=== PATIENT | female | born 1955 | race Caucasian/White ===

== ENCOUNTER 2017-03-27 11:25 | Emergency (ER) | payer OTHER, MEDICAID ==
[~2017-03-27] VITALS: Ht 152.4 cm; Wt 50.0 kg
--- NOTE | 2017-03-27 11:52 | PD ---
HPI Chief Complaint: sob Time Seen by Provider: 11:42 Travel History International Travel<30 days: No Contact w/Intl Traveler<30days: No History of Present Illness HPI 57yo F with PMH of COPD presents to the ED with c/o sob for a few weeks and worse today. States she has been using her pumps at home but not helping. + Cough. Denies any fever, chest pain, n/v, abdominal pain, focal weakness or numbness. PFSH Social History Tobacco Use: No Allergies-Medications (Allergen,Severity, Reaction): Coded Allergies: Codeine (Verified Allergy, Unknown, 03/27/17) Reported Meds & Prescriptions Reported Meds & Active Scripts Active Ventolin Hfa 18 GM Inh (Albuterol Sulfate) 90 Mcg/Act Aer 2 Puff INH Q4H PRN Deltasone (Prednisone) 20 Mg Tab 20 Mg PO BID 5 Days Reported Incruse Ellipta Inh (Umeclidinium [place] Inh) 0.0625 Mg/Act Inh 1-2 Puff INH Q4 -6H PRN Duoneb (Ipratropium-Albuterol Neb) 0.5-2.5 Mg/3 Ml Neb 3 Ml NEB Q4-6H Amlodipine (Amlodipine Besylate) 5 Mg Tab 5 Mg PO DAILY Advair Diskus Inh (Fluticasone-Salmeterol Inh) 250-50 Mcg/Blist Aer 1 Puff INH BID Rinse mouth after use. Ventolin Hfa 18 GM Inh (Albuterol Sulfate) 90 Mcg/Act Aer 2 Puff INH Q4H PRN Albuterol Neb (Albuterol Sulfate) 1.25 Mg/3 Ml Neb 1.25 Mg NEB TID NEB Protonix (Pantoprazole Sodium) 40 Mg Tab 40 Mg PO DAILY Fluoxetine (Fluoxetine HCl) 20 Mg Capsule 20 Mg PO DAILY Buspirone (Buspirone HCl) 15 Mg Tab 15 Mg PO BID Vitamin D3 (Cholecalciferol) 5,000 Unit Cap 5,000 Units PO DAILY Ergocalciferol 50,000 Unit Cap 50,000 Units PO WEEKLY Diprolene AF Topical (Betamethasone Dipropionate Aug Topical) 0.05% Cream 1 Applic TOPICAL 3-4 TIMES DAILY Review of Systems Except as stated in HPI: all other systems reviewed are Neg Physical Exam Narrative GENERAL: 57yo F in mild distress. SKIN: Focused skin assessment warm/dry. HEAD: Atraumatic. Normocephalic. EYES: Pupils equal and round. No scleral icterus. No injection or drainage. ENT: No nasal bleeding or discharge. Mucous membranes pink and moist. NECK: Trachea midline. No JVD. CARDIOVASCULAR: Regular rate and rhythm. No murmur appreciated. RESPIRATORY: + accessory muscle use. Coarse breath sounds bilaterally, right > left. GASTROINTESTINAL: Abdomen soft, non-tender, nondistended. MUSCULOSKELETAL: No obvious deformities. No clubbing. No cyanosis. No edema. No calf tenderness. NEUROLOGICAL: Awake and alert. No obvious cranial nerve deficits. Motor grossly within normal limits. Normal speech. PSYCHIATRIC: Appropriate mood and affect; insight and judgment normal. Data Data Last Documented VS Vital Signs Date Time Temp Pulse Resp B/P Pulse Ox O2 Delivery O2 Flow Rate FiO2 03/27/17 15:00 94 20 137/69 92 3 03/27/17 12:23 98.8 Nasal Cannula Orders Complete Blood Count With Diff (03/27/17 11:48) Basic Metabolic Panel (Bmp) (03/27/17 11:48) B-Type Natriuretic Peptide (03/27/17 11:48) Act Partial Throm Time (Ptt) (03/27/17 11:48) Prothrombin Time / Inr (Pt) (03/27/17 11:48) Troponin I (03/27/17 11:48) Arterial Blood Gas (Abg) (03/27/17 11:48) Iv Access Insert/Monitor (03/27/17 11:48) Electrocardiogram (03/27/17 11:48) Ecg Monitoring (03/27/17 11:48) Oximetry (03/27/17 11:48) Oxygen Administration (03/27/17 11:48) Chest, Single Ap (03/27/17 11:48) Albuterol-Ipratropium Neb (Duoneb Neb) (03/27/17 12:30) Labs Laboratory Tests Test 03/27/17 03/27/17 12:00 12:07 Blood Gas Puncture Site RT RADIAL Blood Gas Patient Temperature 98.6 Blood Gas HCO3 29 mmol/L Blood Gas Base Excess 4.3 mmol/L Blood Gas Oxygen Saturation 93 % Arterial Blood pH 7.38 Arterial Blood Partial 50 mmHg Pressure CO2 Arterial Blood Partial 71 mmHG Pressure O2 Arterial Blood Oxygen Content 20.4 Vol % Arterial Blood 1.3 % Carboxyhemoglobin Arterial Blood Methemoglobin 0.7 % Blood Gas Hemoglobin 15.7 G/DL Oxygen Delivery Device NASAL CANNULA Blood Gas Liter Flow 2 L/M White Blood Count 9.6 TH/MM3 Red Blood Count 5.02 MIL/MM3 Hemoglobin 15.5 GM/DL Hematocrit 45.6 % Mean Corpuscular Volume 90.8 FL Mean Corpuscular Hemoglobin 31.0 PG Mean Corpuscular Hemoglobin 34.1 % Concent Red Cell Distribution Width 12.9 % Platelet Count 182 TH/MM3 Mean Platelet Volume 9.6 FL Neutrophils (%) (Auto) 73.1 % Lymphocytes (%) (Auto) 16.8 % Monocytes (%) (Auto) 7.5 % Eosinophils (%) (Auto) 1.9 % Basophils (%) (Auto) 0.7 % Neutrophils # (Auto) 7.0 TH/MM3 Lymphocytes # (Auto) 1.6 TH/MM3 Monocytes # (Auto) 0.7 TH/MM3 Eosinophils # (Auto) 0.2 TH/MM3 Basophils # (Auto) 0.1 TH/MM3 CBC Comment DIFF FINAL Differential Comment Prothrombin Time 10.7 SEC Prothromb Time International 1.0 RATIO Ratio Activated Partial 31.5 SEC Thromboplast Time Sodium Level 133 MEQ/L Potassium Level 4.0 MEQ/L Chloride Level 99 MEQ/L Carbon Dioxide Level 29.1 MEQ/L Anion Gap 5 MEQ/L Blood Urea Nitrogen 12 MG/DL Creatinine 0.52 MG/DL Estimat Glomerular Filtration 120 ML/MIN Rate Random Glucose 107 MG/DL Calcium Level 9.3 MG/DL Troponin I LESS THAN 0.02 NG/ML B-Type Natriuretic Peptide 20 PG/ML [facility] Medical Decision Making Medical Screen Exam Complete: Yes Emergency Medical Condition: Yes Interpretation(s) EKG: NSR 90bpm. No ST segment elevation or depression. Differential Diagnosis COPD exacerbation vs. ACS Narrative Course 61yo F with sob and wheezing. Labs reviewed, no leukocytosis. Troponin negative. BNP 20. ABG showed chronic CO2 retention at 50. pH is 7.38. O2 sat 93%. Pt uses 2 L NC oxygen at home. Was given methylprednisolone 125mg IV by [facility] and duonebs x3 here. Pt reevaluated at bedside and feels much better. Still wheezing on exam but saturating at 93% on 2L NC. CXR negative. Pt feels well and wants to go home. Return precautions given. Diagnosis Primary Impression: COPD exacerbation Patient Instructions: General Instructions Departure Forms: Tests/Procedures Additional Instructions: Please follow up with your PMD in 1-2 days. Return to the ED if symptoms worsen. Med/Other Pt SpecificInfo: Prescription(s) given Scripts Albuterol 18 GM Inh (Ventolin Hfa 18 GM Inh)90 Mcg/Act Aer2 Puff INH Q4H PRN ( SHORTNESS OF BREATH) #1 INHALER Ref 0 Prov:Enid Gabriel DO 03/27/17 Prednisone (Deltasone)20 Mg Tab20 Mg PO BID 5 Days Ref 0 Prov:Enid Gabriel DO 03/27/17 Disposition: 01 DISCHARGE HOME Condition: Stable Enid Gabriel DO Mar 27, 2017 11:52
[2017-03-27 12:09] LABS: BLOOD GAS BASE EXCESS 4.3 mmol/L (-2-2); BLOOD GAS CARBOXYHEMOGLOBIN 1.3 % (0-4); BLOOD GAS HCO3 29 mmol/L (22-26); BLOOD GAS METHEMOGLOBIN 0.7 % (0-2); BLOOD GAS O2 HGB SATURATION 93 % (90-100); BLOOD GAS OXYGEN CONTENT 20.4 Vol % (12.0-20.0); BLOOD GAS PCO2 50 mmHg (38-42); BLOOD GAS PO2 71 mmHG (61-120); BLOOD GAS TOTAL HGB 15.7 G/DL (12.0-16.0); CRITICAL VALUE NO; OXYGEN DEVICE NASAL CANNULA; TEMP CORR TO 98.6
[2017-03-27 12:10] LABS: DRAW SITE RT RADIAL; LITER FLOW 2 L/M; NUMBER OF ARTERIAL PUNCTURES 1; ULNAR PULSE PRESENT
[2017-03-27 12:11] LABS: STAT YES
[2017-03-27 12:13] VITALS: RESP 26; O2SAT 94
[2017-03-27 12:23] VITALS: BP 163/68; PULSE 91; RESP 18; TEMP 98.8; O2SAT 94
[2017-03-27] MEDS: RESP: ALBUTEROL 2.5 MG/IPRATROPIUM 0.5 MG NEB (SCH) INH ×2 (12:35→12:36)
[2017-03-27 12:39] LABS: BASOPHIL # 0.1 TH/MM3 (0-0.2); BASOPHIL % 0.7 % (0.0-2.0); EOSINOPHIL # 0.2 TH/MM3 (0-0.4); EOSINOPHIL % 1.9 % (0.0-4.0); HEMATOCRIT 45.6 % (35.0-46.0); HEMO FLAGS DIFF FINAL; LYMPH % 16.8 % (9.0-44.0); LYMPHOCYTE # 1.6 TH/MM3 (1.0-4.8); MEAN CELL VOLUME 90.8 FL (80.0-100.0); MEAN CORPUSCULAR HGB CONC 34.1 % (32.0-36.0); MONO % 7.5 % (0.0-8.0); NEUT % 73.1 % (16.0-70.0); PLATELET COUNT 182 TH/MM3 (150-450); RED BLOOD COUNT 5.02 MIL/MM3 (4.00-5.30); RED CELL DISTRIBUTION WIDTH 12.9 % (11.6-17.2); WHITE BLOOD COUNT 9.6 TH/MM3 (4.0-11.0)
[2017-03-27 12:49] LABS: APTT (PATIENT) 31.5 SEC (24.3-30.1); PROTHROMBIN TIME - PATIENT 10.7 SEC (9.8-11.6)
[2017-03-27 12:54] LABS: ANION GAP 5 MEQ/L (5-15); BICARBONATE 29.1 MEQ/L (21.0-32.0); BLOOD UREA NITROGEN 12 MG/DL (7-18); CHLORIDE 99 MEQ/L (98-107); GLOMERULAR FILTRATION RATE 120 ML/MIN (>89); SODIUM (NA) 133 MEQ/L (136-145)
[2017-03-27] MEDS ORDERED: AMLO5TAB2 PO (13:01)
[2017-03-27] MEDS ORDERED: BUSP15TA PO (13:01)
[2017-03-27] MEDS ORDERED: FLUO20CA12 PO (13:01)
[2017-03-27] MEDS ORDERED: IPRASOL NEB (13:01)
[2017-03-27] MEDS ORDERED: UMEC1INH INH (13:01)
[2017-03-27] MEDS ORDERED: ADVA250A INH (13:01)
[2017-03-27] MEDS ORDERED: DIPR0.05 TOPICAL (13:01)
[2017-03-27] MEDS ORDERED: ERGO1CAP30 PO (13:01)
[2017-03-27] MEDS ORDERED: VENTAER INH ×2 (13:01→14:50)
[2017-03-27] MEDS ORDERED: PROT40TA PO (13:01)
[2017-03-27] MEDS ORDERED: ALBU1.25 NEB (13:01)
[2017-03-27] MEDS ORDERED: CHOL5000 PO (13:01)
--- NOTE | 2017-03-27 13:10 | RADRPT ---
EXAM DATE/TIME: 03/27/2017 12:12 [place] COMPARISON: No previous studies available for comparison. INDICATIONS : Short of breath, weakness for 5 days, smoker, no chest surgery MEDICAL HISTORY : Chronic obstructive pulmonary disease. Hypertension SURGICAL HISTORY : None. ENCOUNTER: Initial ACUITY: 4 - 6 days PAIN SCORE: 0/10 LOCATION: Bilateral chest FINDINGS: A single view of the chest demonstrates the lungs to be symmetrically aerated without evidence of mas s, infiltrate or effusion. The cardiomediastinal contours are unremarkable. Osseous structures are intact. CONCLUSION: No acute disease. Madi Ruffin MD on March 27, 2017 at 13:08 Board Certified Radiologist. This report was verified electronically.
--- NOTE | 2017-03-27 14:03 | EKG ---
Date Performed: 03/27/2017 Time Performed: 12:14:14 PTAGE: 61 years EKG: Sinus rhythm POSSIBLE RIGHT ATRIAL ENLARGEMENT INDETERMINATE AXIS BORDERLINE ECG INTERPRETATION BASED ON A DEFAUL T AGE OF 40 YEARS NO PREVIOUS TRACING DOCTOR: Ric Rodas Interpretating Date/Time 03/27/2017 14:01:43
[2017-03-27] MEDS ORDERED: PRED-503 PO (14:50)
[2017-03-27 15:00] VITALS: BP 137/69
== END 2017-03-27 16:20 | disposition home or self-care (01) ==
LOC: NEPC 11:25 → EDBD 11:25 → NEPC 16:20
DX: J44.1 Chronic obstructive pulmonary disease with (acute) exacerbation (principal); Z79.899 Other long term (current) drug therapy; Z79.51 Long term (current) use of inhaled steroids; Z79.52 Long term (current) use of systemic steroids
CPT/HCPCS: 36600; 71010; 80048; 82805; 83880; 84484; 85025; 85610; 85730; 93005; 94640; 94664; 99285

== ENCOUNTER 2018-07-22 15:43 | Inpatient (IN) ==
[2018-07-22] MEDS ORDERED: MethylPREDNISolone Sod Succinate Inj 125 MG/2 ML Vial IV.PUSH ONE (15:51)
--- NOTE | 2018-07-22 16:12 | ED ---
HPI General Chief complaint: Shortness of Breath/Dyspnea Stated complaint: sob Time Seen by Provider: 07/22/18 15:51 Source: patient, family, EMS and RN notes reviewed Mode of arrival: EMS History of Present Illness HPI narrative: 63yF brought in by EMS for shortness of breath and hypoxia. The patient arrived with O2 sats of 80% and severely dyspneic, placed on bipap, unable to provide further details of HPI. As per her sister, the patient has had recent black mold exposure in her apartment and has been complaining of shortness of breath for the past week. Today, she had difficulty finishing sentences so her sister called EMS. The patient uses 2L O2 around the clock, nebs multiple times a day, is currently on a prednisone taper ("half a pill a day"), 4-5 previous ICU admissions but no intubations as per sister. Related Data Home Medications Medication Instructions Recorded Confirmed albuterol sulfate [Ventolin HFA] 2 puff INHALATION Q4HR PRN 07/22/18 07/22/18 amlodipine 5 mg PO DAILY 07/22/18 07/22/18 ammonium lactate 1 applic TOPICAL BID 07/22/18 07/22/18 buspirone 15 mg PO BID 07/22/18 07/22/18 cholecalciferol (vitamin D3) 1,000 unit PO DAILY 07/22/18 07/22/18 [Vitamin D3] fluoxetine 20 mg PO DAILY 07/22/18 07/22/18 fluticasone-salmeterol [Advair 1 inh INHALATION Q12H 07/22/18 07/22/18 Diskus] ipratropium-albuterol 3 ml INHALATION QID PRN 07/22/18 07/22/18 losartan 50 mg PO DAILY 07/22/18 07/22/18 omeprazole 20 mg PO DAILY 07/22/18 07/22/18 umeclidinium [Incruse Ellipta] 1 inh INHALATION DAILY 07/22/18 07/22/18 Allergies Allergy/AdvReac Type Severity Reaction Status Date / Time codeine Allergy Unknown Hives Verified 07/22/18 15:51 Review of Systems ROS Unobtainable ROS Unobtainable: other (unobtainable due to respiratory distress) [facility] Medical History Medical History Anxiety (Acute) COPD (chronic obstructive pulmonary disease) (Acute) Depression (Acute) GERD (gastroesophageal reflux disease) (Acute) HTN (hypertension) (Acute) Hepatitis B (Acute) Social History Social History Smoking Status: Current every day smoker Tobacco Type: Cigarettes How Often Do You Have a Drink Containing Alcohol: Never Recent Travel in [facility] within the Last 8 Weeks: No Recent Out of Country Travel within the Last 8 Weeks: No Immunization History Tetanus Immunization: Unsure Exam Const General: ill appearing [place] Head: normocephalic and atraumatic Eyes General: appearance normal, both eyes and all related structures Chest Chest: normal inspection of the chest Resp Other: Tachypneic to 30s, accessory muscle use, answers in 1-2 word phrases, visibly distress, O2 sats 79-80% on room air Very faint end-expiratory wheeze, decreased air entry, prolonged expiratory phase Cardio Rate: tachycardic Rhythm: regular rhythm GI Palpation: soft and nontender Skin General: no rashes or lesions noted Neuro General: alert and awake Extrem Other: No lower extremity edema Course Initial Documented Vital Signs Pulse Oximetry 96 07/22/18 15:50 Last Documented Vital Signs Temperature 98.3 F 07/22/18 15:58 Pulse Rate 103 H 07/22/18 17:12 Respiratory Rate 26 H 07/22/18 17:12 Blood Pressure 141/67 H 07/22/18 17:12 Pulse Oximetry 95 07/22/18 17:12 Critical Care Time Critical Care Time: Yes Total Critical Care Time: 31 Attestation: Counseling/ Coordination of Care: Total critical care time 31 minutes. This includes examining and stabilizing the patient, gathering a history from a source other than the patient (i.e., chart review), formulating a differential diagnosis, ordering and interpreting laboratory tests and EKG, ordering and interpreting radiology tests, discussing the patient's care with other providers (hospitalist), management of acute hypoxic respiratory failure with non-invasive ventilation, re-evaluation at frequent intervals, and documentation. Amount of time is separate from teaching, counseling the patient and/or family, and exclusive of procedures. Medical Decision Making MDM Narrative Medical decision making narrative: Assessment: 63yF presenting with respiratory distress and hypoxia Plan: EKG and monitor Bipap Nebs and steroids CXR Labs Addendum: Patient tolerated bipap well, weaned to 3L nasal cannula and maintaining O2 sats >92%. I spoke with Dr. Wagner of [facility], patient will likely need bipap overnight tonight. Patient and her sister informed of plan and agree. Medical Screen Exam Complete: Yes Emergency Medical Condition: Yes Differential Diagnosis Differential Diagnosis: Differential diagnosis includes, but is not limited to: COPD exacerbation, respiratory failure, pneumonia, pleural effusion Medical Records Medical records reviewed: Yes I reviewed the patient's medical records. Lab Data Lab results reviewed: Yes I reviewed the patient's lab results. Result diagrams: 07/22/18 16:07 07/22/18 16:07 Lab Results 07/22/18 07/22/18 07/22/18 Range/Units 16:07 16:07 16:07 WBC 8.1 (4.0-11.0) th/mm3 RBC 5.27 (4.00-5.30) mil/mm3 Hgb 17.2 H (11.6-15.3) gm/dL Hct 50.6 H (35.0-46.0) % MCV 96.1 (80.0-100.0) fL MCH 32.6 (27.0-34.0) pg MCHC 33.9 (32.0-36.0) % RDW 12.4 (11.6-17.2) % Plt Count 187 (150-450) th/mm3 MPV 9.7 (7.0-11.0) fL Neut % (Auto) 86.5 H (16.0-70.0) % Lymph % (Auto) 6.5 L (9.0-44.0) % [place] % (Auto) 5.7 (0.0-8.0) % Eos % (Auto) 0.2 (0.0-4.0) % Baso % (Auto) 1.1 (0.0-2.0) % Neut # (Auto) 7.0 (1.8-7.7) th/mm3 Lymph # (Auto) 0.5 L (1.0-4.8) th/mm3 [place] # (Auto) 0.5 (0.0-0.9) th/mm3 Eos # (Auto) 0.0 (0.0-0.4) th/mm3 Baso # (Auto) 0.1 (0.0-0.2) th/mm3 WBC Differential . Differential Comment Auto diff final PT 10.0 (9.8-11.6) sec INR 1.0 Ratio Puncture Site Patient Temperature O2 Saturation (90-100) % ABG pH (7.380-7.420) ABG pCO2 (38-42) mmHg ABG pO2 (61-120) mmHg ABG HCO3 (22-26) mmol/L ABG O2 Content (12.0-20.0) Vol % ABG Base Excess (-2-2) mmol/L ABG Methemoglobin (0-2) % [place] Test Hemoglobin (12.0-16.0) G/DL Carboxyhemoglobin (0-4) % O2 Delivery Device Vent Setting Inspired O2 % Critical Value Sodium 136 (136-145) meq/L Potassium 4.3 (3.5-5.1) meq/L Chloride 100 (98-107) meq/L Carbon Dioxide 31.6 (21.0-32.0) meq/L Anion Gap 4 L (5-15) meq/L BUN 16 (7-18) mg/dL Creatinine 0.64 (0.50-1.00) mg/dL Estimated GFR Greater than 89 (>89) mL/min Random Glucose 122 H (74-106) mg/dL Calcium 8.6 (8.5-10.1) mg/dL Magnesium 2.4 (1.5-2.5) mg/dL Total Bilirubin 0.2 (0.2-1.0) mg/dL AST 54 H (15-37) U/L ALT 72 H (10-53) U/L Alkaline Phosphatase 89 (45-117) U/L Troponin I Less than 0.02 L (0.02-0.05) ng/mL B-Natriuretic Peptide (0-100) pg/mL Total Protein 7.7 (6.4-8.2) g/dL Albumin 3.8 (3.4-5.0) g/dL 07/22/18 07/22/18 Range/Units 16:07 16:39 WBC (4.0-11.0) th/mm3 RBC (4.00-5.30) mil/mm3 Hgb (11.6-15.3) gm/dL Hct (35.0-46.0) % MCV (80.0-100.0) fL MCH (27.0-34.0) pg MCHC (32.0-36.0) % RDW (11.6-17.2) % Plt Count (150-450) th/mm3 MPV (7.0-11.0) fL Neut % (Auto) (16.0-70.0) % Lymph % (Auto) (9.0-44.0) % [place] % (Auto) (0.0-8.0) % Eos % (Auto) (0.0-4.0) % Baso % (Auto) (0.0-2.0) % Neut # (Auto) (1.8-7.7) th/mm3 Lymph # (Auto) (1.0-4.8) th/mm3 [place] # (Auto) (0.0-0.9) th/mm3 Eos # (Auto) (0.0-0.4) th/mm3 Baso # (Auto) (0.0-0.2) th/mm3 WBC Differential Differential Comment PT (9.8-11.6) sec INR Ratio Puncture Site Right radial Patient Temperature 98.6 O2 Saturation 93 (90-100) % ABG pH 7.38 (7.380-7.420) ABG pCO2 54 H* (38-42) mmHg ABG pO2 81 (61-120) mmHg ABG HCO3 32 H (22-26) mmol/L ABG O2 Content 21.6 H (12.0-20.0) Vol % ABG Base Excess 6.5 H (-2-2) mmol/L ABG Methemoglobin 0.6 (0-2) % [place] Test Present Hemoglobin 16.6 H (12.0-16.0) G/DL Carboxyhemoglobin 3.3 (0-4) % O2 Delivery Device Bipap Vent Setting Ipap 15/epap 5 Inspired O2 30 % Critical Value Yes Sodium (136-145) meq/L Potassium (3.5-5.1) meq/L Chloride (98-107) meq/L Carbon Dioxide (21.0-32.0) meq/L Anion Gap (5-15) meq/L BUN (7-18) mg/dL Creatinine (0.50-1.00) mg/dL Estimated GFR (>89) mL/min Random Glucose (74-106) mg/dL Calcium (8.5-10.1) mg/dL Magnesium (1.5-2.5) mg/dL Total Bilirubin (0.2-1.0) mg/dL AST (15-37) U/L ALT (10-53) U/L Alkaline Phosphatase (45-117) U/L Troponin I (0.02-0.05) ng/mL B-Natriuretic Peptide 9 (0-100) pg/mL Total Protein (6.4-8.2) g/dL Albumin (3.4-5.0) g/dL Imaging Data Radiologist's impression: Chest X-Ray 07/22/18 15:51 CONCLUSION: 1. Hyperinflation characteristic of COPD. 2. Minimal bibasilar densities likely atelectasis. 3. Sclerotic focus left humeral head likely bone island. ECG Data Attestation: I personally reviewed and interpreted this ECG as follows: Interpretation: Rate: 92 BPM Rhythm: Sinus [place]: Normal Intervals: Normal intervals, no blocks, QTc 385 ms Q waves: V2, V3 T waves: Upright, no inversions ST segments: Analysis limited due to motion artifact, no obvious elevations or depressions Impression: Non-specific EKG, analysis limited due to motion artifact, no changes as compared to EKG from 03/27/2017. Discharge Plan Discharge Disposition Patient Disposition: 30 Still Patient Discharge Condition Condition: Stable Discharge Details Diagnosis: COPD (chronic obstructive pulmonary disease), Acute respiratory failure with hypoxia Physicians Team ED Provider: Chanel Reina Primary Care Provider: Krystian Corado Attending Provider: Luciana Wagner Status ED Status: Admitted Patient
--- NOTE | 2018-07-22 16:19 | XR ---
EXAM DATE: 07/22/2018 3:51 PM EDT AGE/SEX: 63 years / Female INDICATIONS: Shortness of breath. CLINICAL DATA: This is the patient's initial encounter. Patient reports that signs and symptoms have been present for 1 week and indicates a pain score of 0/10. MEDICAL/SURGICAL HISTORY: Chronic obstructive pulmonary disease. Hypertension. None. COMPARISON: [facility], XR CHEST PA AND LAT, 04/14/2017. [facility], XR CHEST PA AND LAT, 10/10/2016. . FINDINGS: A single AP view of the chest demonstrates the lungs to be hyperinflated with minimal bibasilar atele ctasis. Heart normal in size. The cardiomediastinal contours are unremarkable. Osseous structures a re intact. Sclerotic focus left humeral head. CONCLUSION: 1. Hyperinflation characteristic of COPD. 2. Minimal bibasilar densities likely atelectasis. 3. Sclerotic focus left humeral head likely bone island. Electronically signed by: Albert Gibson MD 07/22/2018 4:18 PM EDT
[2018-07-22 16:47] LABS: Baso # (Auto) 0.1 th/mm3 (0.0-0.2); Baso % (Auto) 1.1 % (0.0-2.0); Eos % (Auto) 0.2 % (0.0-4.0); Hematocrit 50.6 % (35.0-46.0); Hemoglobin 17.2 gm/dL (11.6-15.3); Lymph # (Auto) 0.5 th/mm3 (1.0-4.8); Lymph % (Auto) 6.5 % (9.0-44.0); Mean Corpuscular HGB Conc 33.9 % (32.0-36.0); Mean Corpuscular Hemoglobin 32.6 pg (27.0-34.0); Mean Corpuscular Volume 96.1 fL (80.0-100.0); Mean Platelet Volume 9.7 fL (7.0-11.0); Mono # (Auto) 0.5 th/mm3 (0.0-0.9); Mono % (Auto) 5.7 % (0.0-8.0); Neut % (Auto) 86.5 % (16.0-70.0); Platelet Count 187 th/mm3 (150-450); Red Blood Count 5.27 mil/mm3 (4.00-5.30); Red Cell Distribution Width 12.4 % (11.6-17.2); White Blood Count 8.1 th/mm3 (4.0-11.0)
[2018-07-22 16:49] LABS: ABG Base Excess 6.5 mmol/L (-2-2); ABG PCO2 54 mmHg (38-42); ABG PO2 81 mmHg (61-120)
[2018-07-22 16:55] LABS: Alkaline Phosphatase 89 U/L (45-117); Total Protein 7.7 g/dL (6.4-8.2)
[2018-07-22 16:58] LABS: Alanine Aminotransferase 72 U/L (10-53); Albumin 3.8 g/dL (3.4-5.0); Anion Gap 4 meq/L (5-15); Aspartate Aminotransferase 54 U/L (15-37); Blood Urea Nitrogen 16 mg/dL (7-18); Calcium 8.6 mg/dL (8.5-10.1); Carbon Dioxide 31.6 meq/L (21.0-32.0); Chloride 100 meq/L (98-107); Glomerular Filtration Rate Greater Than 89 mL/min (>89); Glucose,Random 122 mg/dL (74-106); Magnesium 2.4 mg/dL (1.5-2.5); Potassium 4.3 meq/L (3.5-5.1); Sodium 136 meq/L (136-145)
[2018-07-22] MEDS ORDERED: Bisacodyl 10 MG Supp RECTAL PRN (19:16)
--- NOTE | 2018-07-22 19:19 | P.HPIM ---
History of Present Illness Primary Care Physician: Krystian Corado MD History of Present Illness: This is a 63-year-old female with a PMH of HTN, COPD, Anxiety, Depression, Hepatitis B and Tobacco Abuse who was brought to the ER for c/o severe SOB. Pt noted to have O2 sat 80% on RA while out in Triage, immediately brought back and placed on BIPAP. Pt notes recent exposure to black mold w/ worsening SOB/ wheezing despite home Nebulizer/MDI. Uses O2 as needed at home. Reports subjective fever/chills. +productive cough w/ green colored sputum. On arrival , BP 171/90, HR 98, O2 sat 83% on RA, Afebrile. S/p Solu-Medrol and DuoNeb in ER w/ improvement, weaned down to 4L NC w/ O2 sat 95%. CBC essentially unremarkable except for mild hemoconcentration, hemoglobin 17.2. INR 1.0. ABG with pH 7.38, PCO2 54, PO2 81 on BiPAP, 30% FiO2. Chemistry essentially unremarkable. Troponin negative. CXR with hyperinflation characteristic of COPD. - Diagnosis (1) Acute respiratory failure with hypoxia (2) COPD (chronic obstructive pulmonary disease) (3) HTN (hypertension) (4) Tobacco abuse Review of Systems PAST FAMILY HISTORY: Reviewed. No h/o DM or CAD All other systems reviewed negative except as stated in HPI PMFSH - History History Provided By: Patient, Family Member - Medical History Medical History: Medical History (Last Reviewed 07/22/18 @ 16:19 by Chanel Reina DO) Anxiety COPD (chronic obstructive pulmonary disease) Depression GERD (gastroesophageal reflux disease) HTN (hypertension) Hepatitis B - Tobacco History Tobacco Use In Past 30 Days: Yes Smoking Status: Current every day smoker Tobacco Type: Cigarettes - Alcohol History How Often Do You Have a Drink Containing Alcohol: Never - Travel History Recent Travel in the [place] Within the Last 8 Weeks: No Recent Travel Out of the Country Within the Last 8 Weeks: No - Immunization History Tetanus Immunization: Unsure Medications and Allergies Active Medications: Active Medications Acetaminophen (Tylenol) 650 mg PO Q4H PRN PRN Reason: Temp > 100.4 Albuterol (Duoneb Neb (Prn)) 1 ampul NEB Q2HR NEB PRN PRN Reason: SOB/WHEEZING Allergies Allergy/AdvReac Type Severity Reaction Status Date / Time codeine Allergy Unknown Hives Verified 07/22/18 15:51 Home Medications Medication Instructions Recorded Confirmed Type albuterol sulfate [Ventolin HFA] 2 puff INHALATION Q4HR PRN 07/22/18 07/22/18 History amlodipine 5 mg PO DAILY 07/22/18 07/22/18 History ammonium lactate 1 applic TOPICAL BID 07/22/18 07/22/18 History buspirone 15 mg PO BID 07/22/18 07/22/18 History cholecalciferol (vitamin D3) 1,000 unit PO DAILY 07/22/18 07/22/18 History [Vitamin D3] fluoxetine 20 mg PO DAILY 07/22/18 07/22/18 History fluticasone-salmeterol [Advair 1 inh INHALATION Q12H 07/22/18 07/22/18 History Diskus] ipratropium-albuterol 3 ml INHALATION QID PRN 07/22/18 07/22/18 History losartan 50 mg PO DAILY 07/22/18 07/22/18 History omeprazole 20 mg PO DAILY 07/22/18 07/22/18 History umeclidinium [Incruse Ellipta] 1 inh INHALATION DAILY 07/22/18 07/22/18 History Exam Vital signs: Vital Signs 07/22/18 15:50 07/22/18 15:51 07/22/18 15:58 Temperature 98.3 F Pulse Rate 98 H Respiratory Rate 36 H Blood Pressure 171/90 H Pulse Oximetry 96 94 L 83 L 07/22/18 16:39 07/22/18 17:12 Temperature Pulse Rate 96 H 103 H Respiratory Rate 26 H 26 H Blood Pressure 141/67 H Pulse Oximetry 95 Intake & Output 07/22/18 07/22/18 07/23/18 06:59 18:59 06:59 Weight 56.699 kg Narrative: PE: GENERAL: Pleasant middle-aged white female in no acute distress, currently receiving breathing treatment. SKIN: Focused skin assessment warm and dry. HEENT: PERRLA, EOMI. No scleral icterus or conjunctival pallor. No lid lag or facial droop. CARDIOVASCULAR: Regular rate and rhythm. No obvious murmurs to auscultation. No chest tenderness to palpation. RESPIRATORY: Coarse breath sounds bilaterally, occasional wheezing. Breath sounds equal bilaterally. GASTROINTESTINAL: Abdomen soft, non-tender, nondistended. BS normal. MUSCULOSKELETAL: Extremities without clubbing, cyanosis, or edema. No obvious deformities. NEUROLOGICAL: Awake, alert and oriented x4. No focal neurologic deficits. Moving both upper and lower extremities spontaneously. PSYCHIATRIC: Appropriate mood and affect. Insight and judgment normal. Results - Labs CBC & Chem 7: 07/22/18 16:07 07/22/18 16:07 Labs: Short CBC 07/22/18 Range/Units 16:07 WBC 8.1 (4.0-11.0) th/mm3 Hgb 17.2 H (11.6-15.3) gm/dL Hct 50.6 H (35.0-46.0) % Plt Count 187 (150-450) th/mm3 BMP 07/22/18 16:07 Sodium 136 Potassium 4.3 Chloride 100 Carbon Dioxide 31.6 BUN 16 Creatinine 0.64 Calcium 8.6 Cardiac Enzymes 07/22/18 Range/Units 16:07 Troponin I Less than 0.02 L (0.02-0.05) ng/mL Liver Function 07/22/18 Range/Units 16:07 Total Bilirubin 0.2 (0.2-1.0) mg/dL AST 54 H (15-37) U/L ALT 72 H (10-53) U/L Alkaline Phosphatase 89 (45-117) U/L Albumin 3.8 (3.4-5.0) g/dL - Imaging Impressions Chest X-Ray 07/22/18 15:51 CONCLUSION: 1. Hyperinflation characteristic of COPD. 2. Minimal bibasilar densities likely atelectasis. 3. Sclerotic focus left humeral head likely bone island. Caprini VTE Risk Assessment Caprini VTE Risk Assessment: No/Low Risk (score <= 1) Caprini Risk Assessment Model: Point Value = 1 Point Value = 2 Point Value = 3 Point Value = 5 Age 41-60 Minor surgery BMI > 25 kg/m2 Swollen legs Varicose veins or History of unexplained or recurrent spontaneous Oral contraceptives or hormone replacement Sepsis (< 1 month) Serious lung disease, including pneumonia (< 1 month) Abnormal pulmonary function Acute myocardial infarction Congestive heart failure (< 1 month) History of inflammatory bowel disease Medical patient at bed rest Age 61-74 Arthroscopic surgery Major open surgery (> 45 min) Laparoscopic surgery (> 45 min) Malignancy Confined to bed (> 72 hours) Immobilizing plaster cast Central venous access Age >= 75 History of VTE Family history of VTE Factor V Leiden Prothrombin [id number] Lupus anticoagulant Anticardiolipin antibodies Elevated serum homocysteine Heparin-induced thrombocytopenia Other congenital or acquired thrombophilia Stroke (< 1 month) Elective arthroplasty Hip, pelvis, or leg fracture Acute spinal cord injury (< 1 month) Prophylaxis Regimen: Total Risk Factor Score Risk Level Prophylaxis Regimen 0-1 Low Early ambulation 2 Moderate Order ONE of the following: *Sequential Compression Device (SCD) *Heparin 5000 units SQ BID 3-4 Higher Order ONE of the following medications: *Heparin 5000 units SQ TID *Enoxaparin/Lovenox 40 mg SQ daily (WT < 150 kg, CrCl > 30 mL/min) *Enoxaparin/Lovenox 30 mg SQ daily (WT < 150 kg, CrCl > 10-29 mL/min) *Enoxaparin/Lovenox 30 mg SQ BID (WT < 150 kg, CrCl > 30 mL/min) AND/OR *Sequential Compression Device (SCD) 5 or more Highest Order ONE of the following medications: *Heparin 5000 units SQ TID (Preferred with Epidurals) *Enoxaparin/Lovenox 40 mg SQ daily (WT < 150 kg, CrCl > 30 mL/min) *Enoxaparin/Lovenox 30 mg SQ daily (WT < 150 kg, CrCl > 10-29 mL/min) *Enoxaparin/Lovenox 30 mg SQ BID (WT < 150 kg, CrCl > 30 mL/min) AND *Sequential Compression Device (SCD) Assessment and Plan - Assessment (1) Acute respiratory failure with hypoxia Code(s): J96.01 - Acute respiratory failure with hypoxia Status: Acute (2) COPD (chronic obstructive pulmonary disease) Code(s): J44.9 - Chronic obstructive pulmonary disease, unspecified Status: Acute (3) HTN (hypertension) Code(s): I10 - Essential (primary) hypertension Status: Acute (4) Tobacco abuse Code(s): Z72.0 - Tobacco use Status: Acute - Plan A/P: 1. Acute Respiratory Failure w/ Hypoxia: O2 sat 80% on RA on arrival, placed on BIPAP immediately w/ improvement, now down to 4L NC w/ O2 sat 95%, + persistent wheezing/SOB, will monitor closely as she may need to be placed back on BIPAP. 2. COPD: Chronic Respiratory Failure w/ Acute Exacerbation. Severe. Solu- Medrol, DuoNeb, Symbicort, Mucinex. CXR w/ no acute findings, images reviewed. In light of subjective fever/productive cough and physical exam, will start on empiric IV Abx for early pneumonia. Continue w/ Solu-Medrol/DuoNeb as above. 3. HTN: Uncontrolled, BP 170's on arrival, likely compounded by acute respiratory failure, monitor BP closely, antihypertensives as needed for BP >180 4. Tobacco Abuse: Pt counselled. NicoDerm prn if needed. 5. DVT Prophylaxis: SCD/Teds 6. Social work for d/c planning as needed 7. Case discussed w/ ER physician at length, labs/records/imaging reviewed by me.
[2018-07-22] MEDS: MethylPREDNISolone Sod Succinate Inj 40 MG/ML Vial IV.PUSH SCH (21:55)
[2018-07-22] MEDS: Senna/Docusate Sodium 8.6/50 MG Tablet PO SCH (21:56)
[2018-07-22] MEDS: Heparin - SQ 10,000 UNITS/ML Vial SQ SCH (21:56)
[2018-07-22] MEDS: guaiFENesin 600 MG ER Tablet PO SCH (21:56)
[2018-07-22] MEDS: Budesonide-Formoterol 160/4.5 MCG 6 GM Inhaler INH SCH (22:45)
[2018-07-23] MEDS: MethylPREDNISolone Sod Succinate Inj 40 MG/ML Vial IV.PUSH SCH ×4 (02:25→21:03)
[2018-07-23] MEDS: Heparin - SQ 10,000 UNITS/ML Vial SQ SCH ×3 (04:21→21:01)
[2018-07-23 05:38] LABS: Baso % (Auto) 0.2 % (0.0-2.0); Hematocrit 43.8 % (35.0-46.0); Hemoglobin 15.2 gm/dL (11.6-15.3); Lymph # (Auto) 0.3 th/mm3 (1.0-4.8); Lymph % (Auto) 5.8 % (9.0-44.0); Mean Corpuscular HGB Conc 34.7 % (32.0-36.0); Mean Corpuscular Hemoglobin 32.4 pg (27.0-34.0); Mean Corpuscular Volume 93.1 fL (80.0-100.0); Mean Platelet Volume 9.7 fL (7.0-11.0); Mono # (Auto) 0.1 th/mm3 (0.0-0.9); Mono % (Auto) 2.4 % (0.0-8.0); Neut # (Auto) 5.4 th/mm3 (1.8-7.7); Neut % (Auto) 91.6 % (16.0-70.0); Platelet Count 157 th/mm3 (150-450); Red Cell Distribution Width 12.1 % (11.6-17.2); White Blood Count 5.9 th/mm3 (4.0-11.0)
[2018-07-23 06:02] LABS: Albumin 3.3 g/dL (3.4-5.0); Anion Gap 6 meq/L (5-15); Aspartate Aminotransferase 34 U/L (15-37); Blood Urea Nitrogen 15 mg/dL (7-18); Calcium 8.4 mg/dL (8.5-10.1); Chloride 99 meq/L (98-107); Glomerular Filtration Rate Greater Than 89 mL/min (>89); Glucose,Random 117 mg/dL (74-106); Potassium 4.2 meq/L (3.5-5.1); Sodium 136 meq/L (136-145)
[2018-07-23 06:05] LABS: Alanine Aminotransferase 58 U/L (10-53); Alkaline Phosphatase 72 U/L (45-117); Total Protein 6.7 g/dL (6.4-8.2)
[2018-07-23] MEDS: Pantoprazole Sodium 20 MG DR Tablet PO SCH (08:52)
[2018-07-23] MEDS: Senna/Docusate Sodium 8.6/50 MG Tablet PO SCH ×2 (08:52→21:03)
[2018-07-23] MEDS: guaiFENesin 600 MG ER Tablet PO SCH ×2 (08:52→21:00)
[2018-07-23] MEDS: FLUoxetine 20 MG Capsule PO SCH (09:42)
--- NOTE | 2018-07-23 09:54 | P.PNIM ---
Subjective Interval history: This is a 63-year-old female with a PMH of HTN, COPD, Anxiety, Depression, Hepatitis B and Tobacco Abuse who was brought to the ER for c/o severe SOB. Pt noted to have O2 sat 80% on RA while out in Triage, immediately brought back and placed on BIPAP. Pt notes recent exposure to black mold w/ worsening SOB/ wheezing despite home Nebulizer/MDI. Uses O2 as needed at home. Reports subjective fever/chills. +productive cough w/ green colored sputum. On arrival , BP 171/90, HR 98, O2 sat 83% on RA, Afebrile. S/p Solu-Medrol and DuoNeb in ER w/ improvement, weaned down to 4L NC w/ O2 sat 95%. CBC essentially unremarkable except for mild hemoconcentration, hemoglobin 17.2. INR 1.0. ABG with pH 7.38, PCO2 54, PO2 81 on BiPAP, 30% FiO2. Chemistry essentially unremarkable. Troponin negative. CXR with hyperinflation characteristic of COPD. 10-25 STILL SOB WHEEZING STILL SMOKING RECOMMENDED CESSATION STILL ON 3L BY OXYGEN VERY SOB NEEDS NICODERM PATCH Physical Exam Vital signs: Vital Signs 07/22/18 15:50 07/22/18 15:51 07/22/18 15:58 Temperature 98.3 F Pulse Rate 98 H Respiratory Rate 36 H Blood Pressure 171/90 H Pulse Oximetry 96 94 L 83 L 07/22/18 16:39 07/22/18 17:12 07/22/18 19:42 Temperature Pulse Rate 96 H 103 H 103 H Respiratory Rate 26 H 26 H 26 H Blood Pressure 141/67 H Pulse Oximetry 95 95 07/22/18 20:00 07/22/18 23:00 07/23/18 00:00 Temperature 97.9 F Pulse Rate 83 84 Respiratory Rate 24 Blood Pressure 111/71 Pulse Oximetry 93 L 93 L 07/23/18 00:32 07/23/18 01:00 07/23/18 02:00 Temperature Pulse Rate 79 76 78 Respiratory Rate 20 Blood Pressure Pulse Oximetry 98 07/23/18 03:00 07/23/18 04:00 07/23/18 05:00 Temperature 98.4 F Pulse Rate 74 68 72 Respiratory Rate 24 Blood Pressure 110/56 L Pulse Oximetry 95 07/23/18 06:00 07/23/18 09:08 07/23/18 09:09 Temperature Pulse Rate 71 113 H Respiratory Rate 24 Blood Pressure Pulse Oximetry 93 L Intake & Output 07/22/18 07/23/18 07/23/18 18:59 06:59 18:59 Intake Total 630 / 630 Balance 630 / 630 Weight 56.699 kg 56.5 kg Intake: IV 150 / 150 Levaquin 750 mg Premix Inj 150 150 / 150 ML @ 100 mls/hr IV.SIG Q24H ADRIÁN Rx#:[id number] Oral 480 / 480 Other: # Voids 2 Narrative: PE:AWAKE ALERT AND ORIENTED X3 TALKATIVE AND COOPERATIVE GENERAL: Pleasant middle-aged white female in no acute distress, currently receiving breathing treatment. SKIN: Focused skin assessment warm and dry. HEENT: PERRLA, EOMI. No scleral icterus or conjunctival pallor. No lid lag or facial droop. CARDIOVASCULAR: Regular rate and rhythm. No obvious murmurs to auscultation. No chest tenderness to palpation. RESPIRATORY: Coarse breath sounds bilaterally, occasional wheezing. Breath sounds equal bilaterally. GASTROINTESTINAL: Abdomen soft, non-tender, nondistended. BS normal. MUSCULOSKELETAL: Extremities without clubbing, cyanosis, or edema. No obvious deformities. NEUROLOGICAL: Awake, alert and oriented x4. No focal neurologic deficits. Moving both upper and lower extremities spontaneously. PSYCHIATRIC: Appropriate mood and affect. Insight and judgment normal. Results - Labs CBC & Chem 7: 07/23/18 04:51 07/23/18 04:51 Laboratory Results - last 24 hr 07/22/18 07/22/18 07/22/18 16:07 16:07 16:07 WBC 8.1 RBC 5.27 Hgb 17.2 H Hct 50.6 H MCV 96.1 MCH 32.6 MCHC 33.9 RDW 12.4 Plt Count 187 MPV 9.7 Neut % (Auto) 86.5 H Lymph % (Auto) 6.5 L Bibb % (Auto) 5.7 Eos % (Auto) 0.2 Baso % (Auto) 1.1 Neut # (Auto) 7.0 Lymph # (Auto) 0.5 L Bibb # (Auto) 0.5 Eos # (Auto) 0.0 Baso # (Auto) 0.1 WBC Differential . Differential Comment Auto diff final PT 10.0 INR 1.0 Puncture Site Patient Temperature O2 Saturation ABG pH ABG pCO2 ABG pO2 ABG HCO3 ABG O2 Content ABG Base Excess ABG Methemoglobin Kristofer Test Hemoglobin Carboxyhemoglobin O2 Delivery Device Vent Setting Inspired O2 Critical Value Sodium 136 Potassium 4.3 Chloride 100 Carbon Dioxide 31.6 Anion Gap 4 L BUN 16 Creatinine 0.64 Estimated GFR Greater than 89 Random Glucose 122 H Calcium 8.6 Magnesium 2.4 Total Bilirubin 0.2 AST 54 H ALT 72 H Alkaline Phosphatase 89 Troponin I Less than 0.02 L B-Natriuretic Peptide Total Protein 7.7 Albumin 3.8 07/22/18 07/22/18 07/23/18 16:07 16:39 04:51 WBC 5.9 RBC 4.70 Hgb 15.2 D Hct 43.8 MCV 93.1 MCH 32.4 MCHC 34.7 RDW 12.1 Plt Count 157 MPV 9.7 Neut % (Auto) 91.6 H Lymph % (Auto) 5.8 L Bibb % (Auto) 2.4 Eos % (Auto) 0.0 Baso % (Auto) 0.2 Neut # (Auto) 5.4 Lymph # (Auto) 0.3 L Bibb # (Auto) 0.1 Eos # (Auto) 0.0 Baso # (Auto) 0.0 WBC Differential . Differential Comment Auto diff final PT INR Puncture Site Right radial Patient Temperature 98.6 O2 Saturation 93 ABG pH 7.38 ABG pCO2 54 H* ABG pO2 81 ABG HCO3 32 H ABG O2 Content 21.6 H ABG Base Excess 6.5 H ABG Methemoglobin 0.6 Kristofer Test Present Hemoglobin 16.6 H Carboxyhemoglobin 3.3 O2 Delivery Device Bipap Vent Setting Ipap 15/epap 5 Inspired O2 30 Critical Value Yes Sodium Potassium Chloride Carbon Dioxide Anion Gap BUN Creatinine Estimated GFR Random Glucose Calcium Magnesium Total Bilirubin AST ALT Alkaline Phosphatase Troponin I B-Natriuretic Peptide 9 Total Protein Albumin 07/23/18 04:51 WBC RBC Hgb Hct MCV MCH MCHC RDW Plt Count MPV Neut % (Auto) Lymph % (Auto) Bibb % (Auto) Eos % (Auto) Baso % (Auto) Neut # (Auto) Lymph # (Auto) Bibb # (Auto) Eos # (Auto) Baso # (Auto) WBC Differential Differential Comment PT INR Puncture Site Patient Temperature O2 Saturation ABG pH ABG pCO2 ABG pO2 ABG HCO3 ABG O2 Content ABG Base Excess ABG Methemoglobin Kristofer Test Hemoglobin Carboxyhemoglobin O2 Delivery Device Vent Setting Inspired O2 Critical Value Sodium 136 Potassium 4.2 Chloride 99 Carbon Dioxide 31.0 Anion Gap 6 BUN 15 Creatinine 0.55 Estimated GFR Greater than 89 Random Glucose 117 H Calcium 8.4 L Magnesium Total Bilirubin 0.3 AST 34 ALT 58 H Alkaline Phosphatase 72 Troponin I B-Natriuretic Peptide Total Protein 6.7 D Albumin 3.3 L - Imaging Impressions Chest X-Ray 07/22/18 15:51 CONCLUSION: 1. Hyperinflation characteristic of COPD. 2. Minimal bibasilar densities likely atelectasis. 3. Sclerotic focus left humeral head likely bone island. Assessment and Plan - Assessment (1) Acute respiratory failure with hypoxia Code(s): J96.01 - Acute respiratory failure with hypoxia Status: Acute (2) COPD (chronic obstructive pulmonary disease) Code(s): J44.9 - Chronic obstructive pulmonary disease, unspecified Status: Acute (3) HTN (hypertension) Code(s): I10 - Essential (primary) hypertension Status: Acute (4) Tobacco abuse Code(s): Z72.0 - Tobacco use Status: Acute - Plan 1. Acute Respiratory Failure w/ Hypoxia: O2 sat 80% on RA on arrival, placed on BIPAP immediately w/ improvement, now down to 4L NC w/ O2 sat 95%, + persistent wheezing/SOB, will monitor closely as she may need to be placed back on BIPAP. 2. COPD: Chronic Respiratory Failure w/ Acute Exacerbation. Severe. Solu- Medrol, DuoNeb, Symbicort, Mucinex. CXR w/ no acute findings, images reviewed. In light of subjective fever/productive cough and physical exam, will start on empiric IV Abx for early pneumonia. Continue w/ Solu-Medrol/DuoNeb as above. 3. HTN: Uncontrolled, BP 170's on arrival, likely compounded by acute respiratory failure, monitor BP closely, antihypertensives as needed for BP >180 4. Tobacco Abuse: Pt counselled. NicoDerm prn if needed. 5. DVT Prophylaxis: SCD/Teds PT AND OT NICODERM PATCH MUCINEX Code Status: FULL CODE Discussed Condition With: RN AND PT Discharge Planning: PENDING BREATHING IMPROVEMENT
[2018-07-23] MEDS: Budesonide-Formoterol 160/4.5 MCG 6 GM Inhaler INH SCH ×2 (11:26→21:01)
--- NOTE | 2018-07-23 13:27 | ECG ---
Date Performed: 07/22/2018 Time Performed: 16:54:03 PTAGE: 63 years EKG: Sinus rhythm RIGHT VENTRICULAR HYPERTROPHY MODERATE ST DEPRESSION ABNORMAL ECG Probable old anteroseptal OR age u ndetermined but largely unchanged from prior tracing PREVIOUS TRACING : 03/27/2017 12.14 DOCTOR: Jeremías Shaikh Interpretating Date/Time 07/23/2018 13:27:08
[2018-07-24] MEDS: Acetaminophen 325 MG Tablet PO PRN ×2 (02:28→17:36)
[2018-07-24] MEDS: MethylPREDNISolone Sod Succinate Inj 40 MG/ML Vial IV.PUSH SCH ×4 (02:30→21:24)
[2018-07-24 04:31] LABS: Baso % (Auto) 0.2 % (0.0-2.0); Hematocrit 46.4 % (35.0-46.0); Hemoglobin 15.7 gm/dL (11.6-15.3); Lymph # (Auto) 0.4 th/mm3 (1.0-4.8); Lymph % (Auto) 3.2 % (9.0-44.0); Mean Corpuscular HGB Conc 33.8 % (32.0-36.0); Mean Corpuscular Hemoglobin 32.3 pg (27.0-34.0); Mean Corpuscular Volume 95.6 fL (80.0-100.0); Mean Platelet Volume 9.5 fL (7.0-11.0); Mono # (Auto) 0.6 th/mm3 (0.0-0.9); Mono % (Auto) 4.2 % (0.0-8.0); Neut # (Auto) 12.4 th/mm3 (1.8-7.7); Neut % (Auto) 92.4 % (16.0-70.0); Platelet Count 159 th/mm3 (150-450); Red Blood Count 4.85 mil/mm3 (4.00-5.30); Red Cell Distribution Width 12.4 % (11.6-17.2); White Blood Count 13.4 th/mm3 (4.0-11.0)
[2018-07-24] MEDS: Heparin - SQ 10,000 UNITS/ML Vial SQ SCH ×3 (04:44→21:26)
[2018-07-24 05:01] LABS: Albumin 3.3 g/dL (3.4-5.0); Anion Gap 6 meq/L (5-15); Aspartate Aminotransferase 28 U/L (15-37); Blood Urea Nitrogen 17 mg/dL (7-18); Calcium 8.6 mg/dL (8.5-10.1); Carbon Dioxide 31.9 meq/L (21.0-32.0); Chloride 97 meq/L (98-107); Glomerular Filtration Rate 85 mL/min (>89); Glucose,Random 129 mg/dL (74-106); Magnesium 2.3 mg/dL (1.5-2.5); Potassium 4.9 meq/L (3.5-5.1); Sodium 135 meq/L (136-145)
[2018-07-24 05:02] LABS: Alanine Aminotransferase 52 U/L (10-53); Phosphorus 3.6 mg/dL (2.5-4.9)
[2018-07-24 05:11] LABS: Alkaline Phosphatase 69 U/L (45-117); Free T4 (Free Thyroxine) 0.91 ng/dL (0.76-1.46); Thyroid Stimulating Hormone 0.246 uIU/mL (0.358-3.740); Total Protein 7.1 g/dL (6.4-8.2)
[2018-07-24] MEDS: Pantoprazole Sodium 20 MG DR Tablet PO SCH (08:56)
[2018-07-24] MEDS: Budesonide-Formoterol 160/4.5 MCG 6 GM Inhaler INH SCH ×2 (08:56→21:28)
[2018-07-24] MEDS: FLUoxetine 20 MG Capsule PO SCH (08:56)
[2018-07-24] MEDS: Senna/Docusate Sodium 8.6/50 MG Tablet PO SCH ×2 (08:56→21:28)
[2018-07-24] MEDS: guaiFENesin 600 MG ER Tablet PO SCH ×2 (08:56→21:26)
--- NOTE | 2018-07-24 09:49 | P.PNIM ---
Subjective Interval history: This is a 63-year-old female with a PMH of HTN, COPD, Anxiety, Depression, Hepatitis B and Tobacco Abuse who was brought to the ER for c/o severe SOB. Pt noted to have O2 sat 80% on RA while out in Triage, immediately brought back and placed on BIPAP. Pt notes recent exposure to black mold w/ worsening SOB/ wheezing despite home Nebulizer/MDI. Uses O2 as needed at home. Reports subjective fever/chills. +productive cough w/ green colored sputum. On arrival , BP 171/90, HR 98, O2 sat 83% on RA, Afebrile. S/p Solu-Medrol and DuoNeb in ER w/ improvement, weaned down to 4L NC w/ O2 sat 95%. CBC essentially unremarkable except for mild hemoconcentration, hemoglobin 17.2. INR 1.0. ABG with pH 7.38, PCO2 54, PO2 81 on BiPAP, 30% FiO2. Chemistry essentially unremarkable. Troponin negative. CXR with hyperinflation characteristic of COPD. 07-23 STILL SOB WHEEZING STILL SMOKING RECOMMENDED CESSATION STILL ON 3L BY OXYGEN VERY SOB NEEDS NICODERM PATCH 07-24 still wheezing STILL SOB STATES HER HOUSE HAS MOLD IN IT SMOKING CESSATION RECOMMENDED STILL ON OXYGEN A LITTLE LESS SOB DW RN AND PT Physical Exam Vital signs: Vital Signs 07/23/18 10:00 07/23/18 11:00 07/23/18 12:00 Temperature 98.7 F Pulse Rate 80 79 86 Respiratory Rate 20 Blood Pressure 128/72 Pulse Oximetry 95 07/23/18 12:11 07/23/18 13:00 07/23/18 14:00 Temperature Pulse Rate 103 H 88 93 H Respiratory Rate 20 Blood Pressure Pulse Oximetry 07/23/18 15:00 07/23/18 16:00 07/23/18 16:09 Temperature 98.6 F Pulse Rate 107 H 120 H 93 H Respiratory Rate 20 20 Blood Pressure 135/65 Pulse Oximetry 96 07/23/18 17:00 07/23/18 18:00 07/23/18 19:00 Temperature 98.1 F Pulse Rate 136 H 120 H 98 H Respiratory Rate 24 Blood Pressure 162/61 H Pulse Oximetry 92 L 07/23/18 20:00 07/23/18 20:42 07/23/18 21:00 Temperature Pulse Rate 102 H 110 H 124 H Respiratory Rate 20 Blood Pressure Pulse Oximetry 92 L 92 L 07/23/18 22:00 07/23/18 23:00 07/24/18 00:00 Temperature 98.2 F Pulse Rate 110 H 115 H 92 H Respiratory Rate 24 Blood Pressure 155/75 H Pulse Oximetry 93 L 07/24/18 01:00 07/24/18 02:00 07/24/18 03:00 Temperature 98.4 F Pulse Rate 86 86 103 H Respiratory Rate 24 Blood Pressure 157/73 H Pulse Oximetry 92 L 07/24/18 04:00 07/24/18 05:00 07/24/18 06:00 Temperature Pulse Rate 80 74 73 Respiratory Rate Blood Pressure Pulse Oximetry 07/24/18 07:00 07/24/18 07:41 07/24/18 08:00 Temperature 98.6 F Pulse Rate 75 74 73 Respiratory Rate 20 22 Blood Pressure 148/72 H Pulse Oximetry 92 L 92 L 92 L 07/24/18 09:00 Temperature Pulse Rate 74 Respiratory Rate Blood Pressure Pulse Oximetry Intake & Output 07/23/18 07/24/18 07/24/18 18:59 06:59 18:59 Intake Total 870 / 870 Balance 870 / 870 Weight 57 kg Intake: IV 150 / 150 Levaquin 750 mg Premix Inj 150 150 / 150 ML @ 100 mls/hr IV.SIG Q24H ADRIÁN Rx#:[id number] Oral 720 / 720 Other: # Voids 4 3 Date of Last Bowel Movement 07/23/18 07/23/18 07/23/18 # Bowel Movements 1 1 Narrative: PE:AWAKE ALERT AND ORIENTED X3 TALKATIVE AND COOPERATIVE GENERAL: Pleasant middle-aged white female in no acute distress, currently receiving breathing treatment. SKIN: Focused skin assessment warm and dry. HEENT: PERRLA, EOMI. No scleral icterus or conjunctival pallor. No lid lag or facial droop. CARDIOVASCULAR: Regular rate and rhythm. No obvious murmurs to auscultation. No chest tenderness to palpation. RESPIRATORY: Coarse breath sounds bilaterally, occasional wheezing. Breath sounds equal bilaterally. GASTROINTESTINAL: Abdomen soft, non-tender, nondistended. BS normal. MUSCULOSKELETAL: Extremities without clubbing, cyanosis, or edema. No obvious deformities. NEUROLOGICAL: Awake, alert and oriented x4. No focal neurologic deficits. Moving both upper and lower extremities spontaneously. PSYCHIATRIC: Appropriate mood and affect. Insight and judgment normal. Results - Labs CBC & Chem 7: 07/24/18 03:56 07/24/18 03:56 Laboratory Results - last 24 hr 07/24/18 07/24/18 03:56 03:56 WBC 13.4 H D RBC 4.85 Hgb 15.7 H Hct 46.4 H MCV 95.6 MCH 32.3 MCHC 33.8 RDW 12.4 Plt Count 159 MPV 9.5 Neut % (Auto) 92.4 H Lymph % (Auto) 3.2 L Greene % (Auto) 4.2 Eos % (Auto) 0.0 Baso % (Auto) 0.2 Neut # (Auto) 12.4 H Lymph # (Auto) 0.4 L Greene # (Auto) 0.6 Eos # (Auto) 0.0 Baso # (Auto) 0.0 WBC Differential . Differential Comment Auto diff final Sodium 135 L Potassium 4.9 Chloride 97 L Carbon Dioxide 31.9 Anion Gap 6 BUN 17 Creatinine 0.70 Estimated GFR 85 L Random Glucose 129 H Calcium 8.6 Phosphorus 3.6 Magnesium 2.3 Total Bilirubin 0.2 AST 28 ALT 52 Alkaline Phosphatase 69 Total Protein 7.1 Albumin 3.3 L TSH 0.246 L Free T4 0.91 - Imaging ITS Impressions Chest X-Ray 07/22/18 15:51 CONCLUSION: 1. Hyperinflation characteristic of COPD. 2. Minimal bibasilar densities likely atelectasis. 3. Sclerotic focus left humeral head likely bone island. - Procedures NONE Assessment and Plan - Assessment (1) Acute respiratory failure with hypoxia Code(s): J96.01 - Acute respiratory failure with hypoxia Status: Acute (2) COPD (chronic obstructive pulmonary disease) Code(s): J44.9 - Chronic obstructive pulmonary disease, unspecified Status: Acute (3) HTN (hypertension) Code(s): I10 - Essential (primary) hypertension Status: Acute (4) Tobacco abuse Code(s): Z72.0 - Tobacco use Status: Acute - Plan 1. Acute Respiratory Failure w/ Hypoxia: O2 sat 80% on RA on arrival, placed on BIPAP immediately w/ improvement, now down to 4L NC w/ O2 sat 95%, + persistent wheezing/SOB, will monitor closely as she may need to be placed back on BIPAP. 2. COPD: Chronic Respiratory Failure w/ Acute Exacerbation. Severe. Solu- Medrol, DuoNeb, Symbicort, Mucinex. CXR w/ no acute findings, images reviewed. In light of subjective fever/productive cough and physical exam, will start on empiric IV Abx for early pneumonia. Continue w/ Solu-Medrol/DuoNeb as above. 3. HTN: Uncontrolled, BP 170's on arrival, likely compounded by acute respiratory failure, monitor BP closely, antihypertensives as needed for BP >180 4. Tobacco Abuse: Pt counselled. NicoDerm prn if needed. 5. DVT Prophylaxis: SCD/Teds PT AND OT NICODERM PATCH MUCINEX CONTINUE STEROIDS AND NEB TREATMENTS SLOW IMPROVEMENT SUSPECTED Code Status: FULL CODE Discussed Condition With: RN AND PT AND CM Discharge Planning: PENDING BREATHING IMPROVEMENT
[2018-07-24 16:33] LABS: Hemoglobin A1c 5.8 % (4.3-6.0)
[2018-07-25] MEDS: MethylPREDNISolone Sod Succinate Inj 40 MG/ML Vial IV.PUSH SCH ×4 (04:12→20:00)
[2018-07-25] MEDS: Heparin - SQ 10,000 UNITS/ML Vial SQ SCH ×3 (04:13→21:00)
[2018-07-25 04:27] LABS: Baso % (Auto) 0.2 % (0.0-2.0); Hematocrit 44.2 % (35.0-46.0); Hemoglobin 15.3 gm/dL (11.6-15.3); Lymph # (Auto) 0.5 th/mm3 (1.0-4.8); Mean Corpuscular HGB Conc 34.5 % (32.0-36.0); Mean Corpuscular Hemoglobin 32.5 pg (27.0-34.0); Mean Corpuscular Volume 94.2 fL (80.0-100.0); Mean Platelet Volume 9.7 fL (7.0-11.0); Mono # (Auto) 0.5 th/mm3 (0.0-0.9); Mono % (Auto) 4.4 % (0.0-8.0); Neut % (Auto) 91.4 % (16.0-70.0); Platelet Count 159 th/mm3 (150-450); Red Cell Distribution Width 12.3 % (11.6-17.2); White Blood Count 12.1 th/mm3 (4.0-11.0)
[2018-07-25 04:48] LABS: Alanine Aminotransferase 52 U/L (10-53); Anion Gap 3 meq/L (5-15); Aspartate Aminotransferase 26 U/L (15-37); Blood Urea Nitrogen 18 mg/dL (7-18); Calcium 8.3 mg/dL (8.5-10.1); Carbon Dioxide 34.9 meq/L (21.0-32.0); Chloride 99 meq/L (98-107); Glomerular Filtration Rate Greater Than 89 mL/min (>89); Glucose,Random 122 mg/dL (74-106); Magnesium 2.4 mg/dL (1.5-2.5); Potassium 4.8 meq/L (3.5-5.1); Sodium 137 meq/L (136-145)
[2018-07-25 04:50] LABS: Alkaline Phosphatase 61 U/L (45-117); Total Protein 6.3 g/dL (6.4-8.2)
[2018-07-25] MEDS: guaiFENesin 600 MG ER Tablet PO SCH ×2 (09:20→21:00)
[2018-07-25] MEDS: Senna/Docusate Sodium 8.6/50 MG Tablet PO SCH ×2 (09:20→21:00)
[2018-07-25] MEDS: FLUoxetine 20 MG Capsule PO SCH (09:20)
[2018-07-25] MEDS: Pantoprazole Sodium 20 MG DR Tablet PO SCH (09:20)
--- NOTE | 2018-07-25 09:40 | P.PNIM ---
Subjective Interval history: This is a 63-year-old female with a PMH of HTN, COPD, Anxiety, Depression, Hepatitis B and Tobacco Abuse who was brought to the ER for c/o severe SOB. Pt noted to have O2 sat 80% on RA while out in Triage, immediately brought back and placed on BIPAP. Pt notes recent exposure to black mold w/ worsening SOB/ wheezing despite home Nebulizer/MDI. Uses O2 as needed at home. Reports subjective fever/chills. +productive cough w/ green colored sputum. On arrival , BP 171/90, HR 98, O2 sat 83% on RA, Afebrile. S/p Solu-Medrol and DuoNeb in ER w/ improvement, weaned down to 4L NC w/ O2 sat 95%. CBC essentially unremarkable except for mild hemoconcentration, hemoglobin 17.2. INR 1.0. ABG with pH 7.38, PCO2 54, PO2 81 on BiPAP, 30% FiO2. Chemistry essentially unremarkable. Troponin negative. CXR with hyperinflation characteristic of COPD. 07-23 STILL SOB WHEEZING STILL SMOKING RECOMMENDED CESSATION STILL ON 3L BY OXYGEN VERY SOB NEEDS NICODERM PATCH 07-24 still wheezing STILL SOB STATES HER HOUSE HAS MOLD IN IT SMOKING CESSATION RECOMMENDED STILL ON OXYGEN A LITTLE LESS SOB DW RN AND PT 07-25 STILL REMAINS VERY SOB BECOMES TACHYCARDIC ON ANY ACTIVE ON 5LITERS OF OXYGEN AT THIS TIME STILL SOB REFUSING TO DO INCENTIVE SPIROMETRY SWITCH TO LEVALBUTEROL Physical Exam Vital signs: Vital Signs 07/24/18 10:00 07/24/18 11:00 07/24/18 11:33 Temperature 98.4 F Pulse Rate 78 82 83 Respiratory Rate 20 20 Blood Pressure 146/72 H Pulse Oximetry 93 L 07/24/18 12:00 07/24/18 13:00 07/24/18 14:00 Temperature Pulse Rate 78 76 76 Respiratory Rate Blood Pressure Pulse Oximetry 07/24/18 15:00 07/24/18 16:00 07/24/18 16:35 Temperature 98.2 F Pulse Rate 101 H 82 112 H Respiratory Rate 20 20 Blood Pressure 150/75 H Pulse Oximetry 94 L 07/24/18 17:00 07/24/18 18:00 07/24/18 19:00 Temperature 98.5 F Pulse Rate 88 78 89 Respiratory Rate 20 Blood Pressure 109/55 L Pulse Oximetry 98 07/24/18 20:00 07/24/18 20:15 07/24/18 21:00 Temperature Pulse Rate 92 H 108 H 92 H Respiratory Rate 24 Blood Pressure Pulse Oximetry 98 98 07/24/18 22:00 07/24/18 23:00 07/25/18 00:00 Temperature 98.5 F Pulse Rate 94 H 83 82 Respiratory Rate 18 Blood Pressure 100/52 L Pulse Oximetry 98 07/25/18 01:00 07/25/18 02:00 07/25/18 03:00 Temperature 97.9 F Pulse Rate 76 74 82 Respiratory Rate 18 Blood Pressure 136/62 Pulse Oximetry 99 07/25/18 04:00 07/25/18 04:26 07/25/18 05:00 Temperature Pulse Rate 72 83 Respiratory Rate Blood Pressure Pulse Oximetry 99 07/25/18 06:00 07/25/18 06:28 07/25/18 07:00 Temperature Pulse Rate 82 98 H 75 Respiratory Rate 35 H Blood Pressure Pulse Oximetry 96 07/25/18 08:00 07/25/18 09:00 Temperature Pulse Rate 92 H 91 H Respiratory Rate Blood Pressure Pulse Oximetry 95 Intake & Output 07/24/18 07/25/18 07/25/18 18:59 06:59 18:59 Intake Total 1000 / 1000 170 / 170 Balance 1000 / 1000 170 / 170 Weight 58.5 kg Intake: IV 150 / 150 Levaquin 750 mg Premix Inj 150 150 / 150 ML @ 100 mls/hr IV.SIG Q24H [facility] Rx#:[id number] Oral 1000 / 1000 Other: # Voids 4 Date of Last Bowel Movement 07/23/18 07/24/18 # Bowel Movements 1 Narrative: PE:AWAKE ALERT AND ORIENTED X3 TALKATIVE AND COOPERATIVE GENERAL: Pleasant middle-aged white female in no acute distress, currently receiving breathing treatment. SKIN: Focused skin assessment warm and dry. HEENT: PERRLA, EOMI. No scleral icterus or conjunctival pallor. No lid lag or facial droop. CARDIOVASCULAR: Regular rate and rhythm. No obvious murmurs to auscultation. No chest tenderness to palpation. RESPIRATORY: Coarse breath sounds bilaterally, occasional wheezing. Breath sounds equal bilaterally. GASTROINTESTINAL: Abdomen soft, non-tender, nondistended. BS normal. MUSCULOSKELETAL: Extremities without clubbing, cyanosis, or edema. No obvious deformities. NEUROLOGICAL: Awake, alert and oriented x4. No focal neurologic deficits. Moving both upper and lower extremities spontaneously. PSYCHIATRIC: Appropriate mood and affect. Insight and judgment normal. Results - Labs CBC & Chem 7: 07/25/18 03:49 07/25/18 03:49 Laboratory Results - last 24 hr 07/24/18 07/25/18 07/25/18 03:56 03:49 03:49 WBC 12.1 H RBC 4.70 Hgb 15.3 Hct 44.2 MCV 94.2 MCH 32.5 MCHC 34.5 RDW 12.3 Plt Count 159 MPV 9.7 Neut % (Auto) 91.4 H Lymph % (Auto) 4.0 L [place] % (Auto) 4.4 Eos % (Auto) 0.0 Baso % (Auto) 0.2 Neut # (Auto) 11.0 H Lymph # (Auto) 0.5 L [place] # (Auto) 0.5 Eos # (Auto) 0.0 Baso # (Auto) 0.0 WBC Differential . Differential Comment Auto diff final Sodium 137 Potassium 4.8 Chloride 99 Carbon Dioxide 34.9 H Anion Gap 3 L BUN 18 Creatinine 0.61 Estimated GFR Greater than 89 Random Glucose 122 H Hemoglobin A1c 5.8 Calcium 8.3 L Phosphorus 3.0 Magnesium 2.4 Total Bilirubin 0.2 AST 26 ALT 52 Alkaline Phosphatase 61 Total Protein 6.3 L D Albumin 3.0 L - Imaging ITS Impressions Chest X-Ray 07/22/18 15:51 CONCLUSION: 1. Hyperinflation characteristic of COPD. 2. Minimal bibasilar densities likely atelectasis. 3. Sclerotic focus left humeral head likely bone island. - Procedures NONE Assessment and Plan - Assessment (1) Acute respiratory failure with hypoxia Code(s): J96.01 - Acute respiratory failure with hypoxia Status: Acute (2) COPD (chronic obstructive pulmonary disease) Code(s): J44.9 - Chronic obstructive pulmonary disease, unspecified Status: Acute (3) HTN (hypertension) Code(s): I10 - Essential (primary) hypertension Status: Acute (4) Tobacco abuse Code(s): Z72.0 - Tobacco use Status: Acute - Plan 1. Acute Respiratory Failure w/ Hypoxia: O2 sat 80% on RA on arrival, placed on BIPAP immediately w/ improvement, now down to 4L NC w/ O2 sat 95%, + persistent wheezing/SOB, will monitor closely as she may need to be placed back on BIPAP. 2. COPD: Chronic Respiratory Failure w/ Acute Exacerbation. Severe. Solu- Medrol, DuoNeb, Symbicort, Mucinex. CXR w/ no acute findings, images reviewed. In light of subjective fever/productive cough and physical exam, will start on empiric IV Abx for early pneumonia. Continue w/ Solu-Medrol/DuoNeb as above. 3. HTN: Uncontrolled, BP 170's on arrival, likely compounded by acute respiratory failure, monitor BP closely, antihypertensives as needed for BP >180 4. Tobacco Abuse: Pt counselled. NicoDerm prn if needed. 5. DVT Prophylaxis: SCD/Teds PT AND OT NICODERM PATCH MUCINEX CONTINUE STEROIDS AND NEB TREATMENTS SLOW IMPROVEMENT SUSPECTED SWITCH TO LEVALBUTEROL Code Status: FULL CODE Discussed Condition With: RN AND PT AND RESPIRATORY Discharge Planning: PENDING BREATHING IMPROVEMENT
[2018-07-25] MEDS: Metoprolol Tartrate 25 MG Tablet PO SCH ×2 (17:54→21:00)
[2018-07-25] MEDS: Budesonide-Formoterol 160/4.5 MCG 6 GM Inhaler INH SCH (21:00)
[2018-07-26] MEDS: MethylPREDNISolone Sod Succinate Inj 40 MG/ML Vial IV.PUSH SCH ×4 (02:40→21:16)
[2018-07-26 04:30] LABS: Baso % (Auto) 0.1 % (0.0-2.0); Hemoglobin 15.4 gm/dL (11.6-15.3); Lymph # (Auto) 0.8 th/mm3 (1.0-4.8); Lymph % (Auto) 6.4 % (9.0-44.0); Mean Corpuscular HGB Conc 33.5 % (32.0-36.0); Mean Corpuscular Hemoglobin 32.2 pg (27.0-34.0); Mean Platelet Volume 8.9 fL (7.0-11.0); Mono # (Auto) 0.6 th/mm3 (0.0-0.9); Mono % (Auto) 4.7 % (0.0-8.0); Neut # (Auto) 10.7 th/mm3 (1.8-7.7); Neut % (Auto) 88.8 % (16.0-70.0); Platelet Count 163 th/mm3 (150-450); Red Cell Distribution Width 12.2 % (11.6-17.2); White Blood Count 12.1 th/mm3 (4.0-11.0)
[2018-07-26 04:58] LABS: Albumin 3.1 g/dL (3.4-5.0); Anion Gap 5 meq/L (5-15); Aspartate Aminotransferase 20 U/L (15-37); Blood Urea Nitrogen 19 mg/dL (7-18); Calcium 8.7 mg/dL (8.5-10.1); Carbon Dioxide 36.4 meq/L (21.0-32.0); Chloride 95 meq/L (98-107); Glomerular Filtration Rate Greater Than 89 mL/min (>89); Glucose,Random 118 mg/dL (74-106); Magnesium 2.4 mg/dL (1.5-2.5); Potassium 4.7 meq/L (3.5-5.1); Sodium 136 meq/L (136-145)
[2018-07-26 04:59] LABS: Alanine Aminotransferase 47 U/L (10-53)
[2018-07-26 05:02] LABS: Alkaline Phosphatase 61 U/L (45-117); Phosphorus 3.1 mg/dL (2.5-4.9); Total Protein 6.7 g/dL (6.4-8.2)
[2018-07-26] MEDS: Budesonide-Formoterol 160/4.5 MCG 6 GM Inhaler INH SCH ×2 (07:31→08:24)
[2018-07-26] MEDS: Heparin - SQ 10,000 UNITS/ML Vial SQ SCH ×3 (07:31→21:16)
[2018-07-26] MEDS: Metoprolol Tartrate 25 MG Tablet PO SCH ×2 (08:23→21:16)
[2018-07-26] MEDS: Senna/Docusate Sodium 8.6/50 MG Tablet PO SCH ×2 (08:23→21:16)
[2018-07-26] MEDS: FLUoxetine 20 MG Capsule PO SCH (08:24)
[2018-07-26] MEDS: guaiFENesin 600 MG ER Tablet PO SCH ×2 (08:24→21:16)
[2018-07-26] MEDS: Pantoprazole Sodium 20 MG DR Tablet PO SCH (08:24)
--- NOTE | 2018-07-26 09:55 | P.PNIM ---
Subjective Interval history: This is a 63-year-old female with a PMH of HTN, COPD, Anxiety, Depression, Hepatitis B and Tobacco Abuse who was brought to the ER for c/o severe SOB. Pt noted to have O2 sat 80% on RA while out in Triage, immediately brought back and placed on BIPAP. Pt notes recent exposure to black mold w/ worsening SOB/ wheezing despite home Nebulizer/MDI. Uses O2 as needed at home. Reports subjective fever/chills. +productive cough w/ green colored sputum. On arrival , BP 171/90, HR 98, O2 sat 83% on RA, Afebrile. S/p Solu-Medrol and DuoNeb in ER w/ improvement, weaned down to 4L NC w/ O2 sat 95%. CBC essentially unremarkable except for mild hemoconcentration, hemoglobin 17.2. INR 1.0. ABG with pH 7.38, PCO2 54, PO2 81 on BiPAP, 30% FiO2. Chemistry essentially unremarkable. Troponin negative. CXR with hyperinflation characteristic of COPD. 07-23 STILL SOB WHEEZING STILL SMOKING RECOMMENDED CESSATION STILL ON 3L BY OXYGEN VERY SOB NEEDS NICODERM PATCH 07-24 still wheezing STILL SOB STATES HER HOUSE HAS MOLD IN IT SMOKING CESSATION RECOMMENDED STILL ON OXYGEN A LITTLE LESS SOB DW RN AND PT 07-25 STILL REMAINS VERY SOB BECOMES TACHYCARDIC ON ANY ACTIVE ON 5LITERS OF OXYGEN AT THIS TIME STILL SOB REFUSING TO DO INCENTIVE SPIROMETRY SWITCH TO LEVALBUTEROL 07-26 STILL ON 4LITERS OF OXYGEN TRY TO WEAN DOWN AM LABS INCREASE ACTIVITY DW RN AND PT CONTINUE CURRENT TREATMENTS STARTED ON LOW DOSE BETA JOSE Physical Exam Vital signs: Vital Signs 07/25/18 10:00 07/25/18 11:00 07/25/18 12:00 Temperature 98.5 F Pulse Rate 72 79 79 Respiratory Rate 18 Blood Pressure 121/60 Pulse Oximetry 96 07/25/18 12:41 07/25/18 13:00 07/25/18 15:00 Temperature 98.6 F Pulse Rate 97 H 79 110 H Respiratory Rate 20 16 Blood Pressure 121/64 Pulse Oximetry 95 07/25/18 15:54 07/25/18 16:00 07/25/18 17:00 Temperature Pulse Rate 113 H 105 H 126 H Respiratory Rate 22 Blood Pressure Pulse Oximetry 07/25/18 18:00 07/25/18 19:00 07/25/18 20:00 Temperature 98.9 F Pulse Rate 112 H 78 76 Respiratory Rate 18 Blood Pressure 132/66 Pulse Oximetry 95 07/25/18 20:35 07/25/18 21:00 07/25/18 21:05 Temperature Pulse Rate 77 76 Respiratory Rate 18 Blood Pressure Pulse Oximetry 98 07/25/18 22:00 07/25/18 23:00 07/26/18 00:00 Temperature 98.9 F Pulse Rate 74 74 74 Respiratory Rate 18 Blood Pressure 137/66 Pulse Oximetry 97 07/26/18 01:00 07/26/18 02:00 07/26/18 03:00 Temperature 98.7 F Pulse Rate 75 70 70 Respiratory Rate 18 Blood Pressure 128/61 Pulse Oximetry 97 07/26/18 04:00 07/26/18 05:00 07/26/18 06:00 Temperature Pulse Rate 69 71 69 Respiratory Rate Blood Pressure Pulse Oximetry 07/26/18 07:00 07/26/18 08:00 07/26/18 09:00 Temperature 98.1 F Pulse Rate 94 H 80 81 Respiratory Rate 20 Blood Pressure 126/59 L Pulse Oximetry 96 96 Intake & Output 07/25/18 07/26/18 07/26/18 18:59 06:59 18:59 Intake Total 720 / 720 390 / 390 Output Total 620 / 620 Balance 100 / 100 390 / 390 Weight 58 kg Intake: IV 150 / 150 Levaquin 750 mg Premix Inj 150 150 / 150 ML @ 100 mls/hr IV.SIG Q24H [facility] Rx#:[id number] Oral 720 / 720 240 / 240 Output: Urine 620 / 620 Other: # Voids 3 Narrative: PE:AWAKE ALERT AND ORIENTED X3 TALKATIVE AND COOPERATIVE GENERAL: Pleasant middle-aged white female in no acute distress, currently receiving breathing treatment. SKIN: Focused skin assessment warm and dry. HEENT: PERRLA, EOMI. No scleral icterus or conjunctival pallor. No lid lag or facial droop. CARDIOVASCULAR: Regular rate and rhythm. No obvious murmurs to auscultation. No chest tenderness to palpation. RESPIRATORY: Coarse breath sounds bilaterally, occasional wheezing. Breath sounds equal bilaterally. GASTROINTESTINAL: Abdomen soft, non-tender, nondistended. BS normal. MUSCULOSKELETAL: Extremities without clubbing, cyanosis, or edema. No obvious deformities. NEUROLOGICAL: Awake, alert and oriented x4. No focal neurologic deficits. Moving both upper and lower extremities spontaneously. PSYCHIATRIC: Appropriate mood and affect. Insight and judgment normal. Results - Labs CBC & Chem 7: 07/26/18 04:13 07/26/18 04:13 Laboratory Results - last 24 hr 07/26/18 07/26/18 04:13 04:13 WBC 12.1 H RBC 4.80 Hgb 15.4 H Hct 46.0 MCV 96.0 MCH 32.2 MCHC 33.5 RDW 12.2 Plt Count 163 MPV 8.9 Neut % (Auto) 88.8 H Lymph % (Auto) 6.4 L [place] % (Auto) 4.7 Eos % (Auto) 0.0 Baso % (Auto) 0.1 Neut # (Auto) 10.7 H Lymph # (Auto) 0.8 L [place] # (Auto) 0.6 Eos # (Auto) 0.0 Baso # (Auto) 0.0 WBC Differential . Differential Comment Auto diff final Sodium 136 Potassium 4.7 Chloride 95 L Carbon Dioxide 36.4 H Anion Gap 5 BUN 19 H Creatinine 0.57 Estimated GFR Greater than 89 Random Glucose 118 H Calcium 8.7 Phosphorus 3.1 Magnesium 2.4 Total Bilirubin 0.2 AST 20 ALT 47 Alkaline Phosphatase 61 Total Protein 6.7 Albumin 3.1 L - Imaging ITS Impressions Chest X-Ray 07/22/18 15:51 CONCLUSION: 1. Hyperinflation characteristic of COPD. 2. Minimal bibasilar densities likely atelectasis. 3. Sclerotic focus left humeral head likely bone island. - Procedures NONE Assessment and Plan - Assessment (1) Acute respiratory failure with hypoxia Code(s): J96.01 - Acute respiratory failure with hypoxia Status: Acute (2) COPD (chronic obstructive pulmonary disease) Code(s): J44.9 - Chronic obstructive pulmonary disease, unspecified Status: Acute (3) HTN (hypertension) Code(s): I10 - Essential (primary) hypertension Status: Acute (4) Tobacco abuse Code(s): Z72.0 - Tobacco use Status: Acute - Plan 1. Acute Respiratory Failure w/ Hypoxia: O2 sat 80% on RA on arrival, placed on BIPAP immediately w/ improvement, now down to 4L NC w/ O2 sat 95%, + persistent wheezing/SOB, will monitor closely as she may need to be placed back on BIPAP. 2. COPD: Chronic Respiratory Failure w/ Acute Exacerbation. Severe. Solu- Medrol, DuoNeb, Symbicort, Mucinex. CXR w/ no acute findings, images reviewed. In light of subjective fever/productive cough and physical exam, will start on empiric IV Abx for early pneumonia. Continue w/ Solu-Medrol/DuoNeb as above. 3. HTN: Uncontrolled, BP 170's on arrival, likely compounded by acute respiratory failure, monitor BP closely, antihypertensives as needed for BP >180 4. Tobacco Abuse: Pt counselled. NicoDerm prn if needed. 5. DVT Prophylaxis: SCD/Teds PT AND OT NICODERM PATCH MUCINEX CONTINUE STEROIDS AND NEB TREATMENTS SLOW IMPROVEMENT SUSPECTED STARTED ON LOW DOSE BETA JOSE FOR TACHYCARDIA Code Status: FULL CODE Discussed Condition With: RN AND PT Discharge Planning: PENDING BREATHING IMPROVEMENT
[2018-07-27] MEDS: Budesonide-Formoterol 160/4.5 MCG 6 GM Inhaler INH SCH ×3 (00:08→21:34)
[2018-07-27] MEDS: MethylPREDNISolone Sod Succinate Inj 40 MG/ML Vial IV.PUSH SCH ×4 (02:59→20:36)
[2018-07-27 05:54] LABS: Baso % (Auto) 0.3 % (0.0-2.0); Hematocrit 48.1 % (35.0-46.0); Hemoglobin 16.1 gm/dL (11.6-15.3); Lymph # (Auto) 0.8 th/mm3 (1.0-4.8); Lymph % (Auto) 7.4 % (9.0-44.0); Mean Corpuscular HGB Conc 33.5 % (32.0-36.0); Mean Corpuscular Hemoglobin 32.2 pg (27.0-34.0); Mean Corpuscular Volume 96.1 fL (80.0-100.0); Mean Platelet Volume 9.7 fL (7.0-11.0); Mono # (Auto) 0.4 th/mm3 (0.0-0.9); Mono % (Auto) 3.4 % (0.0-8.0); Neut % (Auto) 88.9 % (16.0-70.0); Platelet Count 157 th/mm3 (150-450); Red Blood Count 5.01 mil/mm3 (4.00-5.30); Red Cell Distribution Width 12.1 % (11.6-17.2); White Blood Count 11.2 th/mm3 (4.0-11.0)
[2018-07-27 06:11] LABS: Albumin 3.2 g/dL (3.4-5.0); Anion Gap 6 meq/L (5-15); Aspartate Aminotransferase 35 U/L (15-37); Blood Urea Nitrogen 20 mg/dL (7-18); Calcium 8.6 mg/dL (8.5-10.1); Carbon Dioxide 35.1 meq/L (21.0-32.0); Chloride 92 meq/L (98-107); Glomerular Filtration Rate Greater Than 89 mL/min (>89); Glucose,Random 115 mg/dL (74-106); Magnesium 2.3 mg/dL (1.5-2.5); Potassium 4.4 meq/L (3.5-5.1); Sodium 133 meq/L (136-145)
[2018-07-27 06:12] LABS: Alanine Aminotransferase 66 U/L (10-53); Phosphorus 3.8 mg/dL (2.5-4.9)
[2018-07-27 06:14] LABS: Alkaline Phosphatase 61 U/L (45-117); Total Protein 6.7 g/dL (6.4-8.2)
[2018-07-27] MEDS: Pantoprazole Sodium 20 MG DR Tablet PO SCH (09:04)
[2018-07-27] MEDS: guaiFENesin 600 MG ER Tablet PO SCH ×2 (09:04→20:38)
[2018-07-27] MEDS: Senna/Docusate Sodium 8.6/50 MG Tablet PO SCH ×2 (09:04→20:39)
[2018-07-27] MEDS: FLUoxetine 20 MG Capsule PO SCH (09:04)
[2018-07-27] MEDS: Metoprolol Tartrate 25 MG Tablet PO SCH ×2 (09:05→20:37)
[2018-07-27] MEDS: Heparin - SQ 10,000 UNITS/ML Vial SQ SCH ×3 (09:10→20:37)
--- NOTE | 2018-07-27 10:04 | P.PNIM ---
Subjective Interval history: This is a 63-year-old female with a PMH of HTN, COPD, Anxiety, Depression, Hepatitis B and Tobacco Abuse who was brought to the ER for c/o severe SOB. Pt noted to have O2 sat 80% on RA while out in Triage, immediately brought back and placed on BIPAP. Pt notes recent exposure to black mold w/ worsening SOB/ wheezing despite home Nebulizer/MDI. Uses O2 as needed at home. Reports subjective fever/chills. +productive cough w/ green colored sputum. On arrival , BP 171/90, HR 98, O2 sat 83% on RA, Afebrile. S/p Solu-Medrol and DuoNeb in ER w/ improvement, weaned down to 4L NC w/ O2 sat 95%. CBC essentially unremarkable except for mild hemoconcentration, hemoglobin 17.2. INR 1.0. ABG with pH 7.38, PCO2 54, PO2 81 on BiPAP, 30% FiO2. Chemistry essentially unremarkable. Troponin negative. CXR with hyperinflation characteristic of COPD. 07-23 STILL SOB WHEEZING STILL SMOKING RECOMMENDED CESSATION STILL ON 3L BY OXYGEN VERY SOB NEEDS NICODERM PATCH 07-24 still wheezing STILL SOB STATES HER HOUSE HAS MOLD IN IT SMOKING CESSATION RECOMMENDED STILL ON OXYGEN A LITTLE LESS SOB DW RN AND PT 07-25 STILL REMAINS VERY SOB BECOMES TACHYCARDIC ON ANY ACTIVE ON 5LITERS OF OXYGEN AT THIS TIME STILL SOB REFUSING TO DO INCENTIVE SPIROMETRY SWITCH TO LEVALBUTEROL 07-26 STILL ON 4LITERS OF OXYGEN TRY TO WEAN DOWN AM LABS INCREASE ACTIVITY DW RN AND PT CONTINUE CURRENT TREATMENTS STARTED ON LOW DOSE BETA JOSE 07-27 STILL VERY SOB HAVING COUGHING FITS NEEDING OXYGEN INCREASED CONTINUE STEROIDS AND NEBS AND MUCINEX CONSULT PULMONARY Physical Exam Vital signs: Vital Signs 07/26/18 11:00 07/26/18 11:41 07/26/18 12:00 Temperature 98.2 F Pulse Rate 79 74 97 H Respiratory Rate 20 16 Blood Pressure 161/78 H Pulse Oximetry 95 07/26/18 13:00 07/26/18 14:00 07/26/18 15:00 Temperature 98.0 F Pulse Rate 86 69 81 Respiratory Rate 20 Blood Pressure 135/61 Pulse Oximetry 95 07/26/18 16:00 07/26/18 17:00 07/26/18 18:00 Temperature Pulse Rate 75 97 H 73 Respiratory Rate Blood Pressure Pulse Oximetry 07/26/18 19:00 07/26/18 20:00 07/26/18 21:00 Temperature 98.9 F Pulse Rate 71 70 70 Respiratory Rate 18 Blood Pressure 131/63 Pulse Oximetry 97 07/26/18 21:47 07/26/18 22:00 07/27/18 00:00 Temperature Pulse Rate 64 64 Respiratory Rate Blood Pressure Pulse Oximetry 95 07/27/18 00:40 07/27/18 01:00 07/27/18 02:00 Temperature 98.6 F Pulse Rate 69 62 70 Respiratory Rate 18 Blood Pressure 141/65 H Pulse Oximetry 97 07/27/18 03:00 07/27/18 03:33 07/27/18 04:00 Temperature 98.6 F Pulse Rate 91 H 69 74 Respiratory Rate 18 22 Blood Pressure 145/80 H Pulse Oximetry 97 07/27/18 05:00 07/27/18 06:00 07/27/18 07:00 Temperature 98.8 F Pulse Rate 73 91 H 86 Respiratory Rate 22 Blood Pressure 161/88 H Pulse Oximetry 91 L 07/27/18 08:00 07/27/18 09:00 07/27/18 09:45 Temperature Pulse Rate 99 H 90 Respiratory Rate Blood Pressure Pulse Oximetry 91 L 97 Intake & Output 07/26/18 07/27/18 07/27/18 18:59 06:59 18:59 Intake Total 840 / 840 390 / 390 Balance 840 / 840 390 / 390 Weight 58 kg Intake: IV 150 / 150 Levaquin 750 mg Premix Inj 150 150 / 150 ML @ 100 mls/hr IV.SIG Q24H [facility] Rx#:[id number] Oral 840 / 840 240 / 240 Other: # Voids 3 3 Date of Last Bowel Movement 07/26/18 # Bowel Movements 1 Narrative: PE:AWAKE ALERT AND ORIENTED X3 TALKATIVE AND COOPERATIVE GENERAL: Pleasant middle-aged white female in no acute distress, currently receiving breathing treatment. SKIN: Focused skin assessment warm and dry. HEENT: PERRLA, EOMI. No scleral icterus or conjunctival pallor. No lid lag or facial droop. CARDIOVASCULAR: Regular rate and rhythm. No obvious murmurs to auscultation. No chest tenderness to palpation. RESPIRATORY: Coarse breath sounds bilaterally, POSITIVE wheezing. Breath sounds equal bilaterally. GASTROINTESTINAL: Abdomen soft, non-tender, nondistended. BS normal. MUSCULOSKELETAL: Extremities without clubbing, cyanosis, or edema. No obvious deformities. NEUROLOGICAL: Awake, alert and oriented x4. No focal neurologic deficits. Moving both upper and lower extremities spontaneously. PSYCHIATRIC: Appropriate mood and affect. Insight and judgment normal. Results - Labs CBC & Chem 7: 07/27/18 04:46 07/27/18 04:46 Laboratory Results - last 24 hr 07/27/18 07/27/18 04:46 04:46 WBC 11.2 H RBC 5.01 Hgb 16.1 H Hct 48.1 H MCV 96.1 MCH 32.2 MCHC 33.5 RDW 12.1 Plt Count 157 MPV 9.7 Neut % (Auto) 88.9 H Lymph % (Auto) 7.4 L [place] % (Auto) 3.4 Eos % (Auto) 0.0 Baso % (Auto) 0.3 Neut # (Auto) 10.0 H Lymph # (Auto) 0.8 L [place] # (Auto) 0.4 Eos # (Auto) 0.0 Baso # (Auto) 0.0 WBC Differential . Differential Comment Auto diff final Sodium 133 L Potassium 4.4 Chloride 92 L Carbon Dioxide 35.1 H Anion Gap 6 BUN 20 H Creatinine 0.49 L Estimated GFR Greater than 89 Random Glucose 115 H Calcium 8.6 Phosphorus 3.8 Magnesium 2.3 Total Bilirubin 0.3 AST 35 ALT 66 H Alkaline Phosphatase 61 Total Protein 6.7 Albumin 3.2 L - Imaging ITS Impressions Chest X-Ray 07/22/18 15:51 CONCLUSION: 1. Hyperinflation characteristic of COPD. 2. Minimal bibasilar densities likely atelectasis. 3. Sclerotic focus left humeral head likely bone island. - Procedures NONE Assessment and Plan - Assessment (1) Acute respiratory failure with hypoxia Code(s): J96.01 - Acute respiratory failure with hypoxia Status: Acute (2) COPD (chronic obstructive pulmonary disease) Code(s): J44.9 - Chronic obstructive pulmonary disease, unspecified Status: Chronic (3) HTN (hypertension) Code(s): I10 - Essential (primary) hypertension Status: Chronic (4) Tobacco abuse Code(s): Z72.0 - Tobacco use Status: Chronic - Plan 1. Acute Respiratory Failure w/ Hypoxia: O2 sat 80% on RA on arrival, placed on BIPAP immediately w/ improvement, now down to 4L NC w/ O2 sat 95%, + persistent wheezing/SOB, will monitor closely as she may need to be placed back on BIPAP. 2. COPD: Chronic Respiratory Failure w/ Acute Exacerbation. Severe. Solu- Medrol, DuoNeb, Symbicort, Mucinex. CXR w/ no acute findings, images reviewed. In light of subjective fever/productive cough and physical exam, will start on empiric IV Abx for early pneumonia. Continue w/ Solu-Medrol/DuoNeb as above. 3. HTN: Uncontrolled, BP 170's on arrival, likely compounded by acute respiratory failure, monitor BP closely, antihypertensives as needed for BP >180 4. Tobacco Abuse: Pt counselled. NicoDerm prn if needed. 5. DVT Prophylaxis: SCD/Teds PT AND OT NICODERM PATCH MUCINEX CONTINUE STEROIDS AND NEB TREATMENTS SLOW IMPROVEMENT SUSPECTED STARTED ON LOW DOSE BETA JOSE FOR TACHYCARDIA STILL VERY SOB WILL CONSULT PULMONARY FOR ANY EXTRA HELP Code Status: FULL CODE Discussed Condition With: RN AND PT AND CM Discharge Planning: PENDING BREATHING IMPROVEMENT
--- NOTE | 2018-07-28 00:14 | MB ---
cc: Moni Bloom MD DATE: 07/27/2018 REASON FOR CONSULTATION: COPD. HISTORY OF PRESENT ILLNESS: This is a 63-year-old white female with a history of COPD and hypertension and hepatitis B who was admitted with shortness of breath and wheezing and exposure to mold in her home. The patient has been on oxygen at 2 liters at home and she was coughing up greenish yellow mucus and was quite short of breath and states that she was exposed to mold in the house, which has now been treated. The patient has been having some low-grade fevers and upon arrival in the ER, she was hypoxic with a low O2 saturation and subsequently she was placed on BiPAP and then transferred to the telemetry floor. Chest x-ray showed evidence of hyperinflation with no active infiltrates. The patient has no hemoptysis. Denies chills. She has no leg or calf muscle pains. She does have some joint pains of the extremities. PAST MEDICAL HISTORY: The patient's past history has included history of COPD and hypertension and respiratory failure. She has had no history of pneumonia. She does have a history of hepatitis B and anxiety disorder. HABITS: The patient smoked 1/2 to 1 pack per day for over 40 years and continues to smoke. Alcohol use, occasional. FAMILY HISTORY: Both parents of colon cancer. One brother also of colon cancer. ALLERGIES: NO KNOWN DRUG ALLERGIES LISTED. REVIEW OF SYSTEMS: The patient has lost weight. She has some dizzy attacks. She has cough with expectoration. She has wheezing. She has epigastric distress. No nausea, vomiting. No urinary symptoms. No leg or calf muscle pains and no skin lesions. PHYSICAL EXAMINATION: GENERAL: This is a averagely built middle-aged white female in no acute distress, mild pallor. No cyanosis or icterus. No lymphadenopathy or peripheral edema. VITAL SIGNS: Blood pressure 140/70, pulse 80, respirations 22, temperature 98.2. HEENT: Head is normocephalic. Pupils reactive. Tongue is moist. Nasal mucosa edematous. Throat is injected. NECK: Supple, no bruits or thyroid enlargement or lymphadenopathy. CHEST: Distant breath sounds with occasional crackles at the lung bases and wheezes scattered. HEART: Sounds were irregular. S1 and S2. No murmur. ABDOMEN: Soft, benign. No masses. No organomegaly. EXTREMITIES: No lesions, no edema, normal reflexes. NEUROLOGIC: There were no gross motor deficits. Cranial nerves are intact. ASSESSMENT: 1. Chronic obstructive pulmonary disease with acute exacerbation. 2. Emphysema with chronic bronchitis. 3. Degenerative arthritis. 4. Hypertension. PLAN: The patient has been placed on O2 via nasal cannula at 3 liters. Nebulized DuoNeb solution added 4 hours and Solu-Medrol 40 mg IV every 8 hours. Continue with antibiotic coverage as ordered and the patient will be sent for a pulmonary function study with bronchodilators and she will be placed on Symbicort 160/4.5 mcg 2 puffs twice a day. A CT scan of the chest to evaluate for any lung nodules and the patient was counseled about quitting cigarette smoking and using a nicotine patch. Thank you Dr. Wagner for this consultation. V. Clark Bloom MD VJD/keila , 11:09 PM , 11:22 PM
[2018-07-28] MEDS: MethylPREDNISolone Sod Succinate Inj 40 MG/ML Vial IV.PUSH SCH ×4 (02:16→22:33)
[2018-07-28] MEDS: Heparin - SQ 10,000 UNITS/ML Vial SQ SCH ×3 (04:00→21:17)
[2018-07-28 05:59] LABS: Baso % (Auto) 0.2 % (0.0-2.0); Hematocrit 48.8 % (35.0-46.0); Hemoglobin 16.4 gm/dL (11.6-15.3); Lymph # (Auto) 0.9 th/mm3 (1.0-4.8); Lymph % (Auto) 6.5 % (9.0-44.0); Mean Corpuscular HGB Conc 33.6 % (32.0-36.0); Mean Corpuscular Hemoglobin 32.1 pg (27.0-34.0); Mean Corpuscular Volume 95.4 fL (80.0-100.0); Mean Platelet Volume 9.2 fL (7.0-11.0); Mono # (Auto) 0.5 th/mm3 (0.0-0.9); Mono % (Auto) 3.9 % (0.0-8.0); Neut % (Auto) 89.4 % (16.0-70.0); Platelet Count 177 th/mm3 (150-450); Red Blood Count 5.11 mil/mm3 (4.00-5.30); Red Cell Distribution Width 12.1 % (11.6-17.2); White Blood Count 13.5 th/mm3 (4.0-11.0)
[2018-07-28 06:16] LABS: Albumin 3.3 g/dL (3.4-5.0); Anion Gap 7 meq/L (5-15); Aspartate Aminotransferase 34 U/L (15-37); Blood Urea Nitrogen 23 mg/dL (7-18); Calcium 8.8 mg/dL (8.5-10.1); Carbon Dioxide 33.7 meq/L (21.0-32.0); Chloride 91 meq/L (98-107); Glomerular Filtration Rate Greater Than 89 mL/min (>89); Glucose,Random 130 mg/dL (74-106); Magnesium 2.4 mg/dL (1.5-2.5); Potassium 4.5 meq/L (3.5-5.1); Sodium 132 meq/L (136-145)
[2018-07-28 06:17] LABS: Alanine Aminotransferase 72 U/L (10-53); Phosphorus 3.2 mg/dL (2.5-4.9)
[2018-07-28 06:19] LABS: Alkaline Phosphatase 62 U/L (45-117); Total Protein 6.9 g/dL (6.4-8.2)
--- NOTE | 2018-07-28 09:15 | P.PNIM ---
Subjective Interval history: Patient sitting upright in bed. Patient actively coughing in bed. She says she has shortness of breath on exertion. As of now appears comfortable without complaints of shortness of breath while at rest. Physical Exam Vital signs: Vital Signs 07/27/18 09:45 07/27/18 10:00 07/27/18 11:00 Temperature Pulse Rate 84 98 H Respiratory Rate Blood Pressure Pulse Oximetry 97 07/27/18 11:33 07/27/18 12:00 07/27/18 13:00 Temperature 98.3 F Pulse Rate 76 64 79 Respiratory Rate 22 Blood Pressure 159/71 H Pulse Oximetry 07/27/18 13:23 07/27/18 15:00 07/27/18 15:48 Temperature 98.3 F Pulse Rate 78 70 70 Respiratory Rate 21 Blood Pressure 160/73 H Pulse Oximetry 07/27/18 16:36 07/27/18 17:28 07/27/18 19:00 Temperature 97.9 F Pulse Rate 79 75 68 Respiratory Rate 18 Blood Pressure 150/69 H Pulse Oximetry 94 L 07/27/18 20:00 07/27/18 21:00 07/27/18 22:00 Temperature Pulse Rate 70 64 70 Respiratory Rate Blood Pressure Pulse Oximetry 94 L 07/27/18 23:00 07/28/18 00:00 07/28/18 01:00 Temperature 98 F Pulse Rate 93 H 82 60 Respiratory Rate 18 Blood Pressure 118/56 L Pulse Oximetry 92 L 07/28/18 02:00 07/28/18 03:00 07/28/18 04:00 Temperature 97.5 F L Pulse Rate 66 73 72 Respiratory Rate 20 Blood Pressure 169/73 H Pulse Oximetry 93 L 07/28/18 05:00 07/28/18 06:00 07/28/18 07:00 Temperature 98.2 F Pulse Rate 70 68 69 Respiratory Rate 18 Blood Pressure 147/70 H Pulse Oximetry 96 Intake & Output 07/27/18 07/28/18 07/28/18 18:59 06:59 18:59 Intake Total 850 / 850 630 / 630 Output Total 1200 / 1200 700 / 700 Balance -350 / -350 -70 / -70 Weight 57.5 kg Intake: IV 150 / 150 Levaquin 750 mg Premix Inj 150 150 / 150 ML @ 100 mls/hr IV.SIG Q24H [facility] Rx#:[id number] Oral 850 / 850 480 / 480 Output: Urine 1200 / 1200 700 / 700 Other: Date of Last Bowel Movement 07/28/18 Narrative: General patient sitting upright in bed. HEENT extraocular movements are intact, clear oropharyngeal mucosa, no JVD Cardiovascular S1-S2 audible, RRR, no murmurs rubs or gallops Respiratory wheezing bilaterally, rhonchi right lower lung field. Abdomen soft, nontender, nondistended, normal bowel sounds Extremities no edema 2+ distal pulses in bilateral upper and lower extremities Neuro cranial nerves II through XII intact Results - Labs CBC & Chem 7: 07/28/18 04:32 07/28/18 04:32 Laboratory Results - last 24 hr 07/28/18 07/28/18 04:32 04:32 WBC 13.5 H RBC 5.11 Hgb 16.4 H Hct 48.8 H MCV 95.4 MCH 32.1 MCHC 33.6 RDW 12.1 Plt Count 177 MPV 9.2 Neut % (Auto) 89.4 H Lymph % (Auto) 6.5 L [place] % (Auto) 3.9 Eos % (Auto) 0.0 Baso % (Auto) 0.2 Neut # (Auto) 12.0 H Lymph # (Auto) 0.9 L [place] # (Auto) 0.5 Eos # (Auto) 0.0 Baso # (Auto) 0.0 WBC Differential . Differential Comment Auto diff final Sodium 132 L Potassium 4.5 Chloride 91 L Carbon Dioxide 33.7 H Anion Gap 7 BUN 23 H Creatinine 0.59 Estimated GFR Greater than 89 Random Glucose 130 H Calcium 8.8 Phosphorus 3.2 Magnesium 2.4 Total Bilirubin 0.3 AST 34 ALT 72 H Alkaline Phosphatase 62 Total Protein 6.9 Albumin 3.3 L - Procedures NONE Assessment and Plan - Assessment (1) Acute respiratory failure with hypoxia Code(s): J96.01 - Acute respiratory failure with hypoxia Status: Acute (2) COPD (chronic obstructive pulmonary disease) Code(s): J44.9 - Chronic obstructive pulmonary disease, unspecified Status: Chronic (3) HTN (hypertension) Code(s): I10 - Essential (primary) hypertension Status: Chronic (4) Tobacco abuse Code(s): Z72.0 - Tobacco use Status: Chronic - Plan This patient is a 63-year-old female with a diagnosis of hypertension , COPD on 2 L of home oxygen, anxiety, depression, and hepatitis B. The patient presented with complaints of shortness of breath and was found to be hypoxic and hypercapnic. 1. Acute hypoxic hypercapnic respiratory failure secondary to COPD exacerbation 2. Tobacco use. Patient still has complaints of shortness of breath which is worse on exertion. She is actively coughing during my examination. On physical examination the patient still has wheezing bilaterally and rhonchi in the right lower l lung field. She is currently on supplemental oxygen. Continue breathing treatments, continue IV steroids, continue Levaquin. Pulmonary following, CT scan of the chest ordered and is currently pending, and Symbicort started. Patient counseled on tobacco smoking and agrees to stop smoking. I will follow-up the results of the CT scan of the chest. We will continue the current management and follow with recommendations from pulmonary. 3. Hypertension Continue current medication regimen. The patient's blood pressure medications will be adjusted as needed. Heparin for DVT prophylaxis
[2018-07-28] MEDS: FLUoxetine 20 MG Capsule PO SCH (09:47)
[2018-07-28] MEDS: guaiFENesin 600 MG ER Tablet PO SCH ×2 (09:47→21:17)
[2018-07-28] MEDS: Senna/Docusate Sodium 8.6/50 MG Tablet PO SCH ×2 (09:47→21:17)
[2018-07-28] MEDS: Metoprolol Tartrate 25 MG Tablet PO SCH ×2 (09:48→21:15)
[2018-07-28] MEDS: Pantoprazole Sodium 20 MG DR Tablet PO SCH (09:48)
[2018-07-28] MEDS: Budesonide-Formoterol 160/4.5 MCG 6 GM Inhaler INH SCH ×2 (09:59→21:17)
--- NOTE | 2018-07-28 19:59 | P.PN ---
Subjective Interval history: Feels better today. Coughs up clear sputum. No fever. Good output Physical Exam Vital signs: Vital Signs 07/27/18 20:00 07/27/18 21:00 07/27/18 22:00 Temperature Pulse Rate 70 64 70 Respiratory Rate Blood Pressure Pulse Oximetry 94 L 07/27/18 23:00 07/28/18 00:00 07/28/18 01:00 Temperature 98 F Pulse Rate 93 H 82 60 Respiratory Rate 18 Blood Pressure 118/56 L Pulse Oximetry 92 L 07/28/18 02:00 07/28/18 03:00 07/28/18 04:00 Temperature 97.5 F L Pulse Rate 66 73 72 Respiratory Rate 20 Blood Pressure 169/73 H Pulse Oximetry 93 L 07/28/18 05:00 07/28/18 06:00 07/28/18 07:00 Temperature 98.2 F Pulse Rate 70 68 69 Respiratory Rate 18 Blood Pressure 147/70 H Pulse Oximetry 96 07/28/18 09:00 07/28/18 09:50 07/28/18 10:00 Temperature Pulse Rate 74 75 Respiratory Rate Blood Pressure Pulse Oximetry 96 07/28/18 11:00 07/28/18 12:00 07/28/18 13:00 Temperature 98.3 F Pulse Rate 62 61 74 Respiratory Rate 18 Blood Pressure 133/61 Pulse Oximetry 98 07/28/18 14:00 07/28/18 14:31 07/28/18 15:00 Temperature 98.5 F Pulse Rate 86 66 86 Respiratory Rate 16 Blood Pressure 133/61 Pulse Oximetry 95 07/28/18 16:00 07/28/18 17:00 07/28/18 18:00 Temperature Pulse Rate 88 74 68 Respiratory Rate Blood Pressure Pulse Oximetry Intake & Output 07/28/18 07/28/18 07/29/18 06:59 18:59 06:59 Intake Total 630 / 630 720 / 720 Output Total 700 / 700 Balance -70 / -70 720 / 720 Weight 57.5 kg Intake: IV 150 / 150 Levaquin 750 mg Premix Inj 150 150 / 150 ML @ 100 mls/hr IV.SIG Q24H [facility] Rx#:[id number] Oral 480 / 480 720 / 720 Output: Urine 700 / 700 Other: # Voids 3 Date of Last Bowel Movement 10/30/18 10/30/18 # Bowel Movements 1 Narrative: General :Mid aged W/F patient sitting upright in bed.No distress HEENT: PERRl ,clear oropharyngeal mucosa, no JVD Cardiovascular S1-S2 audible, RRR, no murmurs rubs or gallops Occ wheezing bilaterally,and distant breath sounds Abdomen soft, nontender, nondistended, normal bowel sounds Extremities no edema 1+ distal pulses in bilateral upper and lower extremities Neuro :No Focal deficit Results - Labs CBC & Chem 7: 07/28/18 04:32 07/28/18 04:32 Laboratory Results - last 24 hr 07/28/18 07/28/18 04:32 04:32 WBC 13.5 H RBC 5.11 Hgb 16.4 H Hct 48.8 H MCV 95.4 MCH 32.1 MCHC 33.6 RDW 12.1 Plt Count 177 MPV 9.2 Neut % (Auto) 89.4 H Lymph % (Auto) 6.5 L [place] % (Auto) 3.9 Eos % (Auto) 0.0 Baso % (Auto) 0.2 Neut # (Auto) 12.0 H Lymph # (Auto) 0.9 L [place] # (Auto) 0.5 Eos # (Auto) 0.0 Baso # (Auto) 0.0 WBC Differential . Differential Comment Auto diff final Sodium 132 L Potassium 4.5 Chloride 91 L Carbon Dioxide 33.7 H Anion Gap 7 BUN 23 H Creatinine 0.59 Estimated GFR Greater than 89 Random Glucose 130 H Calcium 8.8 Phosphorus 3.2 Magnesium 2.4 Total Bilirubin 0.3 AST 34 ALT 72 H Alkaline Phosphatase 62 Total Protein 6.9 Albumin 3.3 L - Procedures NONE Assessment and Plan - Assessment (1) COPD (chronic obstructive pulmonary disease) Code(s): J44.9 - Chronic obstructive pulmonary disease, unspecified Status: Chronic (2) Acute respiratory failure with hypoxia Code(s): J96.01 - Acute respiratory failure with hypoxia Status: Acute (3) HTN (hypertension) Code(s): I10 - Essential (primary) hypertension Status: Chronic (4) Tobacco abuse Code(s): Z72.0 - Tobacco use Status: Chronic - Plan 1. Continue antibiotics Levaquin 750 mg IV 2. O2 2 L N/C 3. Duoneb nebs qid. 4. Solumderol 40 Mg IV Q8H 5. PFT and CT Chest today 6. Symbicort ,160 mcg 2puff BID
[2018-07-29] MEDS: MethylPREDNISolone Sod Succinate Inj 40 MG/ML Vial IV.PUSH SCH ×2 (06:00→21:05)
[2018-07-29] MEDS: Heparin - SQ 10,000 UNITS/ML Vial SQ SCH ×3 (06:01→21:04)
[2018-07-29] MEDS: Metoprolol Tartrate 25 MG Tablet PO SCH ×2 (08:55→21:04)
[2018-07-29] MEDS: guaiFENesin 600 MG ER Tablet PO SCH ×2 (08:55→21:04)
[2018-07-29] MEDS: FLUoxetine 20 MG Capsule PO SCH (08:55)
[2018-07-29] MEDS: Pantoprazole Sodium 20 MG DR Tablet PO SCH (08:56)
[2018-07-29] MEDS: Senna/Docusate Sodium 8.6/50 MG Tablet PO SCH ×2 (08:56→21:05)
[2018-07-29] MEDS: Budesonide-Formoterol 160/4.5 MCG 6 GM Inhaler INH SCH ×2 (08:57→21:33)
--- NOTE | 2018-07-29 09:22 | P.PNIM ---
Subjective Interval history: This is a 63-year-old female with a PMH of HTN, COPD, Anxiety, Depression, Hepatitis B and Tobacco Abuse who was brought to the ER for c/o severe SOB. Pt noted to have O2 sat 80% on RA while out in Triage, immediately brought back and placed on BIPAP. Pt notes recent exposure to black mold w/ worsening SOB/ wheezing despite home Nebulizer/MDI. Uses O2 as needed at home. Reports subjective fever/chills. +productive cough w/ green colored sputum. On arrival , BP 171/90, HR 98, O2 sat 83% on RA, Afebrile. S/p Solu-Medrol and DuoNeb in ER w/ improvement, weaned down to 4L NC w/ O2 sat 95%. CBC essentially unremarkable except for mild hemoconcentration, hemoglobin 17.2. INR 1.0. ABG with pH 7.38, PCO2 54, PO2 81 on BiPAP, 30% FiO2. Chemistry essentially unremarkable. Troponin negative. CXR with hyperinflation characteristic of COPD. 07-23 STILL SOB WHEEZING STILL SMOKING RECOMMENDED CESSATION STILL ON 3L BY OXYGEN VERY SOB NEEDS NICODERM PATCH 07-24 still wheezing STILL SOB STATES HER HOUSE HAS MOLD IN IT SMOKING CESSATION RECOMMENDED STILL ON OXYGEN A LITTLE LESS SOB DW RN AND PT 07-25 STILL REMAINS VERY SOB BECOMES TACHYCARDIC ON ANY ACTIVE ON 5LITERS OF OXYGEN AT THIS TIME STILL SOB REFUSING TO DO INCENTIVE SPIROMETRY SWITCH TO LEVALBUTEROL 07-26 STILL ON 4LITERS OF OXYGEN TRY TO WEAN DOWN AM LABS INCREASE ACTIVITY ROBERTO RN AND PT CONTINUE CURRENT TREATMENTS STARTED ON LOW DOSE BETA JOSE 07-27 STILL VERY SOB HAVING COUGHING FITS NEEDING OXYGEN INCREASED CONTINUE STEROIDS AND NEBS AND MUCINEX CONSULT PULMONARY 07-28 Patient sitting upright in bed. Patient actively coughing in bed. She says she has shortness of breath on exertion. As of now appears comfortable without complaints of shortness of breath while at rest. 07-29 SEEN BY PULMONARY DW RN AND PT TO HAVE CT OF CHEST TODAY STILL SOB ON OXYGEN 3 LITERS STILL APPRECIATED PULMONARY INPUT VERY SLOW IMPROVEMENT Physical Exam Vital signs: Vital Signs 07/28/18 09:50 07/28/18 10:00 07/28/18 11:00 Temperature 98.3 F Pulse Rate 75 62 Respiratory Rate 18 Blood Pressure 133/61 Pulse Oximetry 96 98 07/28/18 12:00 07/28/18 13:00 07/28/18 14:00 Temperature Pulse Rate 61 74 86 Respiratory Rate Blood Pressure Pulse Oximetry 07/28/18 14:31 07/28/18 15:00 07/28/18 16:00 Temperature 98.5 F Pulse Rate 66 86 88 Respiratory Rate 16 Blood Pressure 133/61 Pulse Oximetry 95 07/28/18 17:00 07/28/18 18:00 07/28/18 19:00 Temperature 97.7 F Pulse Rate 74 68 65 Respiratory Rate 16 Blood Pressure 111/59 L Pulse Oximetry 96 07/28/18 20:00 07/28/18 21:00 07/28/18 21:42 Temperature Pulse Rate 68 60 Respiratory Rate Blood Pressure Pulse Oximetry 96 07/28/18 22:00 07/28/18 23:00 07/29/18 00:00 Temperature 98.1 F Pulse Rate 62 65 72 Respiratory Rate 16 Blood Pressure 112/61 Pulse Oximetry 97 07/29/18 01:00 07/29/18 02:00 07/29/18 03:00 Temperature 98.0 F Pulse Rate 64 66 65 Respiratory Rate 16 Blood Pressure 112/61 Pulse Oximetry 97 07/29/18 04:00 07/29/18 05:00 07/29/18 06:00 Temperature Pulse Rate 60 62 68 Respiratory Rate Blood Pressure Pulse Oximetry 07/29/18 07:00 Temperature Pulse Rate 66 Respiratory Rate Blood Pressure Pulse Oximetry Intake & Output 07/28/18 07/29/18 07/29/18 18:59 06:59 18:59 Intake Total 720 / 720 870 / 870 Output Total 800 / 800 Balance 720 / 720 70 / 70 Weight 57 kg Intake: IV 150 / 150 Levaquin 750 mg Premix Inj 150 150 / 150 ML @ 100 mls/hr IV.SIG Q24H [facility] Rx#:[id number] Oral 720 / 720 720 / 720 Output: Urine 800 / 800 Other: # Voids 3 Date of Last Bowel Movement 07/28/18 07/29/18 # Bowel Movements 1 1 Narrative: General :Mid aged W/F patient sitting upright in bed.No distress HEENT: PERRl ,clear oropharyngeal mucosa, no JVD Cardiovascular S1-S2 audible, RRR, no murmurs rubs or gallops Occ wheezing bilaterally,and distant breath sounds Abdomen soft, nontender, nondistended, normal bowel sounds Extremities no edema 1+ distal pulses in bilateral upper and lower extremities Neuro :No Focal deficit Results - Labs CBC & Chem 7: 07/28/18 04:32 07/28/18 04:32 - Imaging ITS Impressions Chest X-Ray 07/22/18 15:51 CONCLUSION: 1. Hyperinflation characteristic of COPD. 2. Minimal bibasilar densities likely atelectasis. 3. Sclerotic focus left humeral head likely bone island. - Procedures NONE Assessment and Plan - Assessment (1) Acute respiratory failure with hypoxia Code(s): J96.01 - Acute respiratory failure with hypoxia Status: Acute (2) COPD (chronic obstructive pulmonary disease) Code(s): J44.9 - Chronic obstructive pulmonary disease, unspecified Status: Chronic (3) HTN (hypertension) Code(s): I10 - Essential (primary) hypertension Status: Chronic (4) Tobacco abuse Code(s): Z72.0 - Tobacco use Status: Chronic - Plan 1. Acute Respiratory Failure w/ Hypoxia: O2 sat 80% on RA on arrival, placed on BIPAP immediately w/ improvement, now down to 4L NC w/ O2 sat 95%, + persistent wheezing/SOB, will monitor closely as she may need to be placed back on BIPAP. 2. COPD: Chronic Respiratory Failure w/ Acute Exacerbation. Severe. Solu- Medrol, DuoNeb, Symbicort, Mucinex. CXR w/ no acute findings, images reviewed. In light of subjective fever/productive cough and physical exam, will start on empiric IV Abx for early pneumonia. Continue w/ Solu-Medrol/DuoNeb as above. MEDS ADJUSTED BY PULMONARY--TO GO FOR CT CHEST TODAY 3. HTN: Uncontrolled, BP 170's on arrival, likely compounded by acute respiratory failure, monitor BP closely, antihypertensives as needed for BP >180 4. Tobacco Abuse: Pt counselled. NicoDerm prn if needed. 5. DVT Prophylaxis: SCD/Teds PT AND OT NICODERM PATCH MUCINEX CONTINUE STEROIDS AND NEB TREATMENTS SLOW IMPROVEMENT SUSPECTED STARTED ON LOW DOSE BETA JOSE FOR TACHYCARDIA STILL VERY SOB WILL CONSULT PULMONARY FOR ANY EXTRA HELP Code Status: FULL CODE Discussed Condition With: RN AND PT Discharge Planning: PENDING BREATHING IMPROVEMENT
--- NOTE | 2018-07-29 14:23 | CT ---
EXAM DATE: 07/29/2018 2:13 PM EDT AGE/SEX: 63 years / Female INDICATIONS: Short of breath. CLINICAL DATA: This is the patient's initial encounter. Patient reports that signs and symptoms have been present for 1 day and indicates a pain score of 0/10. MEDICAL/SURGICAL HISTORY: Chronic obstructive pulmonary disease. Hypertension. None. RADIATION DOSE: 6.02 CTDI (mGy) COMPARISON: POI, CT CHEST W/O CONTRAST, 03/13/2017. . TECHNIQUE: Multiple contiguous axial images were obtained through the chest without contrast. Image s were obtained in suspended respiration using multiple row detector helical technique. Using automa estela exposure control and adjustment of the mA and/or kV according to patient size, radiation dose was kept as low as reasonably achievable to obtain optimal diagnostic quality images. DICOM format imag e data is available electronically for review and comparison. FINDINGS: Lungs: Stable 3 mm nodule right middle lobe. Tiny 1 to 2 mm subpleural opacities evident nonspecific . Mediastinum: There is good visualization of the great vessels of the middle mediastinum. No evidenc e of mediastinal or hilar adenopathy/mass. Pleurae: No evidence of focal thickening or pleural effusion. Axillae: Unremarkable. Bony Structures: Unremarkable. Miscellaneous: The examination was extended to include the upper abdomen, and both adrenal glands ar e normal in size and configuration. CONCLUSION: 1. Stable CT scan of the chest. 2. There are no new suspicious lung nodules. Electronically signed by: Rasta Newman MD 07/29/2018 2:22 PM EDT
--- NOTE | 2018-07-29 18:01 | P.PN ---
Subjective Interval history: Doing better. On 2 L o2. No cough but has wheezing. No fever. CT chest is stable with a 3 mm nodule Physical Exam Vital signs: Vital Signs 07/28/18 18:00 07/28/18 19:00 07/28/18 20:00 Temperature 97.7 F Pulse Rate 68 65 68 Respiratory Rate 16 Blood Pressure 111/59 L Pulse Oximetry 96 07/28/18 21:00 07/28/18 21:42 07/28/18 22:00 Temperature Pulse Rate 60 62 Respiratory Rate Blood Pressure Pulse Oximetry 96 07/28/18 23:00 07/29/18 00:00 07/29/18 01:00 Temperature 98.1 F Pulse Rate 65 72 64 Respiratory Rate 16 Blood Pressure 112/61 Pulse Oximetry 97 07/29/18 02:00 07/29/18 03:00 07/29/18 04:00 Temperature 98.0 F Pulse Rate 66 65 60 Respiratory Rate 16 Blood Pressure 112/61 Pulse Oximetry 97 07/29/18 05:00 07/29/18 06:00 07/29/18 07:00 Temperature 98.2 F Pulse Rate 62 68 64 Respiratory Rate 18 Blood Pressure 135/112 H Pulse Oximetry 97 07/29/18 08:00 07/29/18 09:00 07/29/18 10:00 Temperature Pulse Rate 66 64 64 Respiratory Rate Blood Pressure Pulse Oximetry 97 07/29/18 11:00 07/29/18 12:00 07/29/18 13:00 Temperature 98.4 F Pulse Rate 66 64 67 Respiratory Rate 18 Blood Pressure 118/64 Pulse Oximetry 97 07/29/18 14:00 07/29/18 15:00 07/29/18 16:00 Temperature 98.6 F Pulse Rate 65 66 65 Respiratory Rate 18 Blood Pressure 112/66 Pulse Oximetry 97 07/29/18 17:00 Temperature Pulse Rate 63 Respiratory Rate Blood Pressure Pulse Oximetry Intake & Output 07/28/18 07/29/18 07/29/18 18:59 06:59 18:59 Intake Total 720 / 720 870 / 870 975 / 975 Output Total 800 / 800 925 / 925 Balance 720 / 720 70 / 70 50 / 50 Weight 57 kg Intake: IV 150 / 150 Levaquin 750 mg Premix Inj 150 150 / 150 ML @ 100 mls/hr IV.SIG Q24H [facility] Rx#:[id number] Oral 720 / 720 720 / 720 975 / 975 Output: Urine 800 / 800 925 / 925 Other: # Voids 3 Date of Last Bowel Movement 07/28/18 07/29/18 07/29/18 # Bowel Movements 1 1 1 Narrative: General :Mid aged W/F patient in No distress HEENT: PERRl ,clear oropharyngeal mucosa, no JVD Cardiovascular S1-S2 audible, RRR, no murmurs rubs or gallops Occ wheezing bilaterally,and distant breath sounds. Abdomen soft, nontender, nondistended, normal bowel sounds Extremities no edema and 1+ distal pulses in bilateral upper and lower extremities Neuro :No Focal deficit Results - Labs CBC & Chem 7: 07/28/18 04:32 07/28/18 04:32 - Imaging Impressions Chest CT 07/29/18 00:00 CONCLUSION: 1. Stable CT scan of the chest. 2. There are no new suspicious lung nodules. - Procedures NONE Assessment and Plan - Assessment (1) COPD (chronic obstructive pulmonary disease) Code(s): J44.9 - Chronic obstructive pulmonary disease, unspecified Status: Chronic (2) Acute respiratory failure with hypoxia Code(s): J96.01 - Acute respiratory failure with hypoxia Status: Acute (3) HTN (hypertension) Code(s): I10 - Essential (primary) hypertension Status: Chronic (4) Tobacco abuse Code(s): Z72.0 - Tobacco use Status: Chronic - Plan 1. Continue antibiotics Levaquin and switch to Po 2. O2 2 L N/C 3. Duoneb nebs qid. 4. Solumderol 40 Mg IV Q12H till friday 5. Up in room. 6. Symbicort ,160 mcg 2puff BID.
[2018-07-30] MEDS: Heparin - SQ 10,000 UNITS/ML Vial SQ SCH ×3 (04:14→21:38)
[2018-07-30 05:04] LABS: Baso # (Auto) 0.1 th/mm3 (0.0-0.2); Baso % (Auto) 0.5 % (0.0-2.0); Eos % (Auto) 0.1 % (0.0-4.0); Hematocrit 50.4 % (35.0-46.0); Hemoglobin 16.8 gm/dL (11.6-15.3); Lymph # (Auto) 1.3 th/mm3 (1.0-4.8); Lymph % (Auto) 9.9 % (9.0-44.0); Mean Corpuscular HGB Conc 33.4 % (32.0-36.0); Mean Corpuscular Volume 95.8 fL (80.0-100.0); Mean Platelet Volume 9.4 fL (7.0-11.0); Mono # (Auto) 0.4 th/mm3 (0.0-0.9); Mono % (Auto) 3.4 % (0.0-8.0); Neut # (Auto) 11.2 th/mm3 (1.8-7.7); Neut % (Auto) 86.1 % (16.0-70.0); Platelet Count 202 th/mm3 (150-450); Red Blood Count 5.26 mil/mm3 (4.00-5.30); Red Cell Distribution Width 12.1 % (11.6-17.2)
[2018-07-30 05:28] LABS: Albumin 3.3 g/dL (3.4-5.0); Anion Gap 7 meq/L (5-15); Aspartate Aminotransferase 57 U/L (15-37); Blood Urea Nitrogen 24 mg/dL (7-18); Calcium 8.9 mg/dL (8.5-10.1); Carbon Dioxide 34.2 meq/L (21.0-32.0); Chloride 92 meq/L (98-107); Glomerular Filtration Rate Greater Than 89 mL/min (>89); Glucose,Random 119 mg/dL (74-106); Magnesium 2.5 mg/dL (1.5-2.5); Potassium 4.9 meq/L (3.5-5.1); Sodium 133 meq/L (136-145)
[2018-07-30 05:30] LABS: Alanine Aminotransferase 115 U/L (10-53)
[2018-07-30 05:32] LABS: Alkaline Phosphatase 60 U/L (45-117)
[2018-07-30] MEDS: Senna/Docusate Sodium 8.6/50 MG Tablet PO SCH ×2 (10:12→21:39)
[2018-07-30] MEDS: Metoprolol Tartrate 25 MG Tablet PO SCH ×2 (10:12→21:39)
[2018-07-30] MEDS: MethylPREDNISolone Sod Succinate Inj 40 MG/ML Vial IV.PUSH SCH (10:12)
[2018-07-30] MEDS: guaiFENesin 600 MG ER Tablet PO SCH ×2 (10:12→21:39)
[2018-07-30] MEDS: Budesonide-Formoterol 160/4.5 MCG 6 GM Inhaler INH SCH ×2 (10:13→21:40)
[2018-07-30] MEDS: Pantoprazole Sodium 20 MG DR Tablet PO SCH (10:13)
[2018-07-30] MEDS: FLUoxetine 20 MG Capsule PO SCH (10:13)
--- NOTE | 2018-07-30 15:53 | P.PNIM ---
Subjective Interval history: Breathing better currently on 4 L of oxygen states that at home she is on 1.5-2 L of oxygen. No complaints of chest pain. Physical Exam Vital signs: Vital Signs 07/29/18 16:00 07/29/18 17:00 07/29/18 18:00 Temperature Pulse Rate 65 63 68 Respiratory Rate Blood Pressure Pulse Oximetry 07/29/18 19:00 07/29/18 20:00 07/29/18 21:00 Temperature 98.0 F Pulse Rate 72 68 76 Respiratory Rate 18 Blood Pressure 114/56 L Pulse Oximetry 92 L 96 07/29/18 22:00 07/29/18 23:00 07/30/18 00:00 Temperature 97.2 F L Pulse Rate 72 70 68 Respiratory Rate 18 Blood Pressure 116/58 L Pulse Oximetry 95 07/30/18 01:00 07/30/18 02:00 07/30/18 03:00 Temperature 98.8 F Pulse Rate 68 66 82 Respiratory Rate 18 Blood Pressure 138/64 Pulse Oximetry 93 L 07/30/18 04:00 07/30/18 04:45 07/30/18 05:00 Temperature Pulse Rate 72 98 H 96 H Respiratory Rate 30 H Blood Pressure Pulse Oximetry 07/30/18 06:00 07/30/18 07:00 07/30/18 08:00 Temperature 98.4 F Pulse Rate 76 78 100 H Respiratory Rate 18 Blood Pressure 156/67 H Pulse Oximetry 91 L 91 L 07/30/18 09:00 07/30/18 10:00 07/30/18 11:00 Temperature 98.3 F Pulse Rate 96 H 90 77 Respiratory Rate 18 Blood Pressure 143/63 H Pulse Oximetry 91 L 07/30/18 12:00 07/30/18 13:00 07/30/18 14:00 Temperature Pulse Rate 88 76 72 Respiratory Rate Blood Pressure Pulse Oximetry 07/30/18 15:00 Temperature 98.5 F Pulse Rate 84 Respiratory Rate 18 Blood Pressure 154/94 H Pulse Oximetry 91 L Intake & Output 07/29/18 07/30/18 07/30/18 18:59 06:59 18:59 Intake Total 975 / 975 480 / 480 600 / 600 Output Total 925 / 925 500 / 500 Balance 50 / 50 -20 / -20 600 / 600 Weight 57 kg Intake: Oral 975 / 975 480 / 480 600 / 600 Output: Urine 925 / 925 500 / 500 Other: # Voids 2 Date of Last Bowel Movement 07/29/18 07/30/18 07/30/18 # Bowel Movements 1 1 Narrative: GENERAL: This is a well-nourished, well-developed patient, in no apparent distress. CARDIOVASCULAR: Regular rate and rhythm RESPIRATORY: Diminished breath sounds bilaterally, no retractions. GASTROINTESTINAL: Abdomen soft, non-tender, nondistended. Normal active bowel sounds MUSCULOSKELETAL: Extremities without clubbing, cyanosis, or edema. NEURO: Alert & Oriented x4 to person, place, time, situation. Moves all ext x4 Results - Labs CBC & Chem 7: 07/30/18 03:55 07/30/18 03:55 Laboratory Results - last 24 hr 07/30/18 07/30/18 03:55 03:55 WBC 13.0 H RBC 5.26 Hgb 16.8 H Hct 50.4 H MCV 95.8 MCH 32.0 MCHC 33.4 RDW 12.1 Plt Count 202 MPV 9.4 Neut % (Auto) 86.1 H Lymph % (Auto) 9.9 [place] % (Auto) 3.4 Eos % (Auto) 0.1 Baso % (Auto) 0.5 Neut # (Auto) 11.2 H Lymph # (Auto) 1.3 [place] # (Auto) 0.4 Eos # (Auto) 0.0 Baso # (Auto) 0.1 WBC Differential . Differential Comment Auto diff final Sodium 133 L Potassium 4.9 Chloride 92 L Carbon Dioxide 34.2 H Anion Gap 7 BUN 24 H Creatinine 0.62 Estimated GFR Greater than 89 Random Glucose 119 H Calcium 8.9 Phosphorus 4.0 Magnesium 2.5 Total Bilirubin 0.4 AST 57 H ALT 115 H Alkaline Phosphatase 60 Total Protein 7.0 Albumin 3.3 L - Procedures NONE Assessment and Plan - Assessment (1) Acute respiratory failure with hypoxia Code(s): J96.01 - Acute respiratory failure with hypoxia Status: Acute (2) COPD (chronic obstructive pulmonary disease) Code(s): J44.9 - Chronic obstructive pulmonary disease, unspecified Status: Chronic (3) HTN (hypertension) Code(s): I10 - Essential (primary) hypertension Status: Chronic (4) Tobacco abuse Code(s): Z72.0 - Tobacco use Status: Chronic - Plan 63-year-old white female presents with 1. Acute Respiratory Failure w/ Hypoxia due to COPD exacerbation: O2 sat 80% on RA on arrival, placed on BIPAP immediately w/ improvement, now down to 4L NC w/ O2 sat 95%, continue to wean oxygen as tolerated, patient is usually on 1.5-2 L at home. 2. COPD, oxygen dependent: Chronic Respiratory Failure w/ Acute Exacerbation. Severe. Solu-Medrol 40 mg IV q. 12 and will transition to p.o. in the morning , DuoNeb, Symbicort, Mucinex. DuoNeb treatment Status post CT of the chest showed stable with no suspicious new nodules. 3. HTN: Uncontrolled, BP 170's on arrival, likely compounded by acute respiratory failure, monitor BP closely, antihypertensives as needed for BP >180 , currently on Cozaar. 4. Tobacco Abuse: Pt counselled. NicoDerm prn if needed. 5. DVT Prophylaxis: SCD/Teds Continue physical therapy Discharge plan in the morning. Discharge Planning: home with [facility]
--- NOTE | 2018-07-30 15:54 | P.DCO ---
- Diagnosis (1) Acute respiratory failure with hypoxia Status: Acute (2) COPD (chronic obstructive pulmonary disease) Status: Chronic - Physical Therapy Order: Evaluate and treat - Home Health Nursing Order: Nursing assessment with vital signs - Case Management Consult Yes - Certification I have seen patient Kathia Arce on 07/30/18. My clinical findings support the need for the requested home health care services because: Patient has SOB I certify that my clinical findings support that this patient is homebound because: Hx COPD - exertion dyspnea/weakness
[2018-07-30] MEDS: Acetaminophen 325 MG Tablet PO PRN (17:14)
--- NOTE | 2018-07-30 19:16 | P.PN ---
Subjective Interval history: She is better .Able to ambulate . O2 sats 96 on 2 l. Sputum is clear. Physical Exam Vital signs: Vital Signs 07/29/18 20:00 07/29/18 21:00 07/29/18 22:00 Temperature Pulse Rate 68 76 72 Respiratory Rate Blood Pressure Pulse Oximetry 96 07/29/18 23:00 07/30/18 00:00 07/30/18 01:00 Temperature 97.2 F L Pulse Rate 70 68 68 Respiratory Rate 18 Blood Pressure 116/58 L Pulse Oximetry 95 07/30/18 02:00 07/30/18 03:00 07/30/18 04:00 Temperature 98.8 F Pulse Rate 66 82 72 Respiratory Rate 18 Blood Pressure 138/64 Pulse Oximetry 93 L 07/30/18 04:45 07/30/18 05:00 07/30/18 06:00 Temperature Pulse Rate 98 H 96 H 76 Respiratory Rate 30 H Blood Pressure Pulse Oximetry 07/30/18 07:00 07/30/18 08:00 07/30/18 09:00 Temperature 98.4 F Pulse Rate 78 100 H 96 H Respiratory Rate 18 Blood Pressure 156/67 H Pulse Oximetry 91 L 91 L 07/30/18 10:00 07/30/18 11:00 07/30/18 12:00 Temperature 98.3 F Pulse Rate 90 77 88 Respiratory Rate 18 Blood Pressure 143/63 H Pulse Oximetry 91 L 07/30/18 13:00 07/30/18 14:00 07/30/18 15:00 Temperature 98.5 F Pulse Rate 76 72 84 Respiratory Rate 18 Blood Pressure 154/94 H Pulse Oximetry 91 L 07/30/18 16:00 07/30/18 17:00 07/30/18 18:00 Temperature Pulse Rate 81 85 77 Respiratory Rate Blood Pressure Pulse Oximetry Intake & Output 07/30/18 07/30/18 07/31/18 06:59 18:59 06:59 Intake Total 480 / 480 1800 / 1800 Output Total 500 / 500 Balance -20 / -20 1800 / 1800 Weight 57 kg Intake: Oral 480 / 480 1800 / 1800 Output: Urine 500 / 500 Other: # Voids 1 Date of Last Bowel Movement 07/30/18 07/30/18 # Bowel Movements 1 Narrative: GENERAL: This is a well-nourished, well-developed patient, in no apparent distress. CARDIOVASCULAR: Regular rate and rhythm RESPIRATORY: Diminished breath sounds bilaterally, Occ Wheeze and no retractions. GASTROINTESTINAL: Abdomen soft, non-tender, nondistended. Normal active bowel sounds MUSCULOSKELETAL: Extremities without clubbing, cyanosis, or edema. NEURO: Alert & Oriented x4 to person, place, time, situation. Moves all ext x4 Results - Labs CBC & Chem 7: 07/30/18 03:55 07/30/18 03:55 Laboratory Results - last 24 hr 07/30/18 07/30/18 03:55 03:55 WBC 13.0 H RBC 5.26 Hgb 16.8 H Hct 50.4 H MCV 95.8 MCH 32.0 MCHC 33.4 RDW 12.1 Plt Count 202 MPV 9.4 Neut % (Auto) 86.1 H Lymph % (Auto) 9.9 [place] % (Auto) 3.4 Eos % (Auto) 0.1 Baso % (Auto) 0.5 Neut # (Auto) 11.2 H Lymph # (Auto) 1.3 [place] # (Auto) 0.4 Eos # (Auto) 0.0 Baso # (Auto) 0.1 WBC Differential . Differential Comment Auto diff final Sodium 133 L Potassium 4.9 Chloride 92 L Carbon Dioxide 34.2 H Anion Gap 7 BUN 24 H Creatinine 0.62 Estimated GFR Greater than 89 Random Glucose 119 H Calcium 8.9 Phosphorus 4.0 Magnesium 2.5 Total Bilirubin 0.4 AST 57 H ALT 115 H Alkaline Phosphatase 60 Total Protein 7.0 Albumin 3.3 L - Procedures NONE Assessment and Plan - Assessment (1) COPD (chronic obstructive pulmonary disease) Code(s): J44.9 - Chronic obstructive pulmonary disease, unspecified Status: Chronic (2) Acute respiratory failure with hypoxia Code(s): J96.01 - Acute respiratory failure with hypoxia Status: Acute (3) HTN (hypertension) Code(s): I10 - Essential (primary) hypertension Status: Chronic (4) Tobacco abuse Code(s): Z72.0 - Tobacco use Status: Chronic - Plan 1. Continue antibiotics Levaquin and switch to Po for 3 days 2. O2 2 L N/C 3. Duoneb nebs qid. 4. D/C Solumderol 5. Add Prednisone 20 mg BID and taper 6. Cont Symbicort ,160 mcg 2puff BID. 7. Home over weekend.
[2018-07-30] MEDS: predniSONE 20 MG Tablet PO SCH (21:38)
[2018-07-31] MEDS: Heparin - SQ 10,000 UNITS/ML Vial SQ SCH ×2 (06:22→12:50)
[2018-07-31] MEDS: Metoprolol Tartrate 25 MG Tablet PO SCH (09:35)
[2018-07-31] MEDS: FLUoxetine 20 MG Capsule PO SCH (09:36)
[2018-07-31] MEDS: guaiFENesin 600 MG ER Tablet PO SCH (09:36)
[2018-07-31] MEDS: Senna/Docusate Sodium 8.6/50 MG Tablet PO SCH (09:37)
[2018-07-31] MEDS: Budesonide-Formoterol 160/4.5 MCG 6 GM Inhaler INH SCH (09:37)
[2018-07-31] MEDS: predniSONE 20 MG Tablet PO SCH (09:41)
[2018-07-31] MEDS: Pantoprazole Sodium 20 MG DR Tablet PO SCH (09:41)
[2018-07-31 09:43] VITALS: O2SAT 94
[2018-07-31 11:50] VITALS: BP 115/63; RESP 18; TEMP 98.3
--- NOTE | 2018-07-31 13:47 | P.DS ---
Date of admission: 07/22/18 19:19 Primary care physician: Krystian Corado MD Brief History from admission: This is a 63-year-old female with a PMH of HTN, COPD, Anxiety, Depression, Hepatitis B and Tobacco Abuse who was brought to the ER for c/o severe SOB. Pt noted to have O2 sat 80% on RA while out in Triage, immediately brought back and placed on BIPAP. Patient was then admitted for a COPD exacerbation. DS: Diagnosis - Discharge Diagnosis (1) Acute respiratory failure with hypoxia Status: Acute (2) COPD (chronic obstructive pulmonary disease) Status: Chronic (3) HTN (hypertension) Status: Chronic (4) Tobacco abuse Status: Chronic DS: Medications - Discharge Medications Prescriptions: budesonide-formoterol [Symbicort] 2 puff INH BID #1 inhaler prednisone 10 mg PO DAILY #16 tab DS: Summary Hospital Course: This patient is a 63-year-old female with a diagnosis of hypertension, COPD on 2 -3 L of supplemental oxygen, anxiety, depression, hepatitis B, and extensive history of tobacco use. The patient was brought into our emergency department with complaints of severe shortness of breath. She was found to have wheezing bilaterally on physical examination and was hypoxic. Patient was admitted and treated for a COPD exacerbation. 1. Acute hypoxic hypercapnic restaurant failure secondary to COPD exacerbation 2. 3 mm right mid lung nodule 3. Tobacco abuse The patient was admitted and started on steroids and breathing treatments around -the-clock for COPD exacerbation. She was also requiring supplemental oxygen. Chest x-ray was done which did not show any evidence of infiltrate however did show findings consistent with COPD. CT scan of the chest was also done which shows a stable right sided 3 mm lung nodule. She was closely monitored while in -house and continued with breathing treatments and the above-mentioned treatment. Patient symptoms have now improved and she has been titrating down to her baseline home oxygen of 2 L. She currently does not have any shortness of breath. She has received 1 week of IV antibiotics and will be discharged home today. She will be given prescription for Symbicort, the patient states she has an albuterol inhaler at home. She will also be given a titration dose of prednisone on discharge. Medication compliance and avoiding tobacco use was discussed in detail with the patient and she agrees to stop using. She should also follow-up with her primary care physician regarding the 3 mm right mid lung nodule and this should be monitored within 6 months from now with imaging. Patient is stable for discharge home today. 4. Hypertension Blood pressure is under control. She can continue taking losartan. She was advised to follow-up with her primary care physician in the next 1-2 weeks. - Time Spent with Patient Total time spent providing and/or coordinating discharge services: Greater than 30 minutes - Quality: VTE Deep Vein Thrombosis/Pulmonary Embolism Present on Admission: No Exam Vital signs: Vital Signs 07/30/18 14:00 07/30/18 15:00 07/30/18 16:00 Temperature 98.5 F Pulse Rate 72 84 81 Respiratory Rate 18 Blood Pressure 154/94 H Pulse Oximetry 91 L 07/30/18 17:00 07/30/18 18:00 07/30/18 19:00 Temperature Pulse Rate 85 77 83 Respiratory Rate 20 Blood Pressure 121/76 Pulse Oximetry 90 L 07/30/18 20:00 07/30/18 21:00 07/30/18 22:00 Temperature Pulse Rate 71 74 94 H Respiratory Rate Blood Pressure Pulse Oximetry 92 L 07/30/18 23:00 07/31/18 00:00 07/31/18 01:00 Temperature Pulse Rate 62 68 64 Respiratory Rate 16 Blood Pressure Pulse Oximetry 90 L 07/31/18 02:00 07/31/18 02:08 07/31/18 03:00 Temperature Pulse Rate 66 61 Respiratory Rate 16 20 Blood Pressure 124/75 Pulse Oximetry 92 L 07/31/18 04:00 07/31/18 05:00 07/31/18 06:00 Temperature Pulse Rate 61 68 72 Respiratory Rate Blood Pressure Pulse Oximetry 07/31/18 07:33 07/31/18 08:48 07/31/18 09:23 Temperature 98.8 F Pulse Rate 104 H Respiratory Rate 23 Blood Pressure 157/95 H Pulse Oximetry 97 97 90 L 07/31/18 09:43 07/31/18 11:49 Temperature 98.3 F Pulse Rate 80 63 Respiratory Rate 20 18 Blood Pressure 115/63 Pulse Oximetry 94 L 94 L Intake & Output 07/30/18 07/31/18 07/31/18 18:59 06:59 18:59 Intake Total 1800 / 1800 240 / 240 Balance 1800 / 1800 240 / 240 Weight 55.1 kg Intake: Oral 1800 / 1800 240 / 240 Other: # Voids 1 5 Date of Last Bowel Movement 07/30/18 07/30/18 07/31/18 # Bowel Movements 2 Narrative: General patient in no acute distress HEENT extraocular movements are intact, clear oropharyngeal mucosa, no JVD Cardiovascular S1-S2 audible, RRR, no murmurs rubs or gallops Respiratory clear to auscultation bilaterally Abdomen soft, nontender, nondistended, normal bowel sounds Extremities no edema 2+ distal pulses in bilateral upper and lower extremities Neuro cranial nerves II through XII intact Results Procedures completed during hospitalization: NONE - Impressions ITS Impressions Chest X-Ray 07/22/18 15:51 CONCLUSION: 1. Hyperinflation characteristic of COPD. 2. Minimal bibasilar densities likely atelectasis. 3. Sclerotic focus left humeral head likely bone island. Chest CT 07/29/18 00:00 CONCLUSION: 1. Stable CT scan of the chest. 2. There are no new suspicious lung nodules. Discharge Plan - Discharge Disposition Patient Disposition: Discharge Home - Discharge Condition Condition: Stable - Discharge Order Discharge Orders: Discharge Order (Routine); Ordered 07/31/18 Ordered By: Faith Bonilla - Physicians Team Primary Care Provider: Krystian Corado Attending Provider: Faith Bonilla Other Providers: Jorge Hines MD
[2018-07-31 13:59] VITALS: PULSE 78
== END 2018-07-31 16:59 | disposition home health service (06) ==
LOC: NEPE 15:43 → NEDA 19:19 → HCPC 22:45 → NEDA 22:56 → HCIS 07-30 14:39
PROVIDERS: ADMIT Hospitalist; ATTEND Hospitalist